=== PATIENT | female | born 1945 | race Caucasian/White ===

== ENCOUNTER 2021-02-12 09:56 | Emergency (ER) | payer OTHER, MEDICARE, SELFPAY ==
--- NOTE | ~2021-02-12 | XR_ITS ---
XR lumbar spine 2-3V DATE: 02/12/2021 10:45 INDICATION: Fall. Lower back pain. TECHNIQUE: AP, lateral, coned lateral lumbosacral views COMPARISON: None FINDINGS: There is moderate levoscoliosis of the lower thoracic and lumbar spine. There is degenerati ve spurring of the thoracic and lumbar spine. There is degenerative disc disease throughout the lumba r spine, particularly prominent at L3-4, L4-5 and L5-S1. No fracture or bone destruction is evident. The lumbar pedicles are intact. The sacroiliac joints appear normal. IMPRESSION: Thoracolumbar levoscoliosis Multilevel degenerative disc disease of the lumbar spine Reviewed, dictated and finalized at location A. UITING SPECIALIST
[2021-02-12 10:22] VITALS: BP 106/76; PULSE 99; RESP 18; TEMP 36.5; O2SAT 99
--- NOTE | 2021-02-12 10:43 | ED.BACK ---
HPI - Back Pain/Injury General Chief Complaint: Back Pain/Injury Stated Complaint: Back Pain Time Seen by Provider: 02/12/21 10:50 Source: patient, RN notes reviewed and old records reviewed Mode of arrival: ambulatory Limitations: no limitations History of Present Illness HPI Narrative: 75-year-old female who presents to [facility] with complaints of falling at [facility] yesterday when she slipped on some substance that was on the floor and she fell onto her lower back. Patient states she has pain to her tailbone area to the left buttocks with pain radiating down left leg posteriorly to mid thigh. Patient states that she has some burning sensation in the bottom of her left foot. Patient denies any previous back injury or problems with her back.Patient has no paraspinal tenderness on examination but pain identified in lower lumbar area and to left buttocks. MD elicited complaint: back pain, back injury and fall Pertinent past history: recent trauma Related Data Home Medications Medication Instructions Recorded Confirmed albuterol sulfate 90 mcg INHALATION DIRECTED 02/12/21 02/12/21 amlodipine 5 mg PO DIRECTED 02/12/21 02/12/21 budesonide-formoterol 2 inh INHALATION DIRECTED 02/12/21 02/12/21 fluticasone propionate 2 spray INTRANASAL DIRECTED 02/12/21 02/12/21 losartan-hydrochlorothiazide 1 tablet PO DIRECTED 02/12/21 02/12/21 olanzapine 7.5 mg PO DIRECTED 02/12/21 02/12/21 phentermine 15 mg PO DIRECTED 02/12/21 02/12/21 trazodone 100 mg PO DIRECTED 02/12/21 02/12/21 Allergies Allergy/AdvReac Type Severity Reaction Status Date / Time aspirin Allergy Rash Verified 02/12/21 10:36 codeine Allergy Rash Verified 02/12/21 10:36 erythromycin base Allergy Itching Verified 02/12/21 10:36 propoxyphene [From Darvon] Allergy Rash Verified 02/12/21 10:36 Review of Systems Review of Systems: CONSTITUTIONAL: Denies fever, chills, or sweats. EYES: Denies visual changes, redness, or discharge. ENT: Denies rhinorrhea, congestion, sore throat, or otalgia. CARDIOVASCULAR: Denies chest pain, palpitations, or edema. RESPIRATORY: Denies cough or dyspnea. GASTROINTESTINAL: Denies abdominal pain, nausea, vomiting, or diarrhea. GENITOURINARY: Denies dysuria or hematuria. SKIN: Denies rash or itching. MUSCULOSKELETAL: Positive for lower lumbar back pain, pain radiates to mid thigh posteriorly,no joint pain, or myalgia. NEUROLOGIC: Denies headache, numbness, or weakness. PSYCHIATRIC: Positive for history of anxiety or depression. All systems reviewed & are unremarkable except as noted in HPI and below PMFSH Past Medical History Medical History (Updated 02/12/21 @ 23:42 by Mary Patel NP) Anxiety and depression COPD (chronic obstructive pulmonary disease) GERD (gastroesophageal reflux disease) Hypertension Surgical History Surgical History (Updated 02/12/21 @ 23:38 by Mary Patel NP) History of appendectomy Social History Social History (Updated 02/12/21 @ 23:39 by Mary Patel NP) Smoking status: Former smoker Alcohol intake: current Alcohol use details: rare social Substance use: never Living arrangements: with family Gender identity (if verbalized by the patient): Female Comments At time of signature, agree with nursing past medical, surgical, social and family history. There is no relevant family history pertinent to the presenting complaint Exam Narrative: GENERAL: Well-appearing, well-nourished, and in no acute distress. HEAD: Normocephalic, atraumatic. EYES: PERRLA and EOMI. ENT: Nares clear, no rhinorrhea or epistaxis. Mucous membranes moist.TM's normal with good light reflex, throat pink with no lesions or exudates no tonsil enlargement. NECK: Supple.no lymphadenopathy CHEST: Clear to auscultation. No respiratory distress.SAO2 99% on room air HEART: Regular rate and rhythm. No murmur heard. Normal peripheral pulses. ABDOMEN: Soft, nontender, nondistended, normal
== END 2021-02-12 11:15 | disposition home or self-care (01) ==
PROVIDERS: Emergency Provider Registered Nurse
DX: S39.012A Strain of muscle, fascia and tendon of lower back, initial encounter (principal); W01.0XXA Fall on same level from slipping, tripping and stumbling without subsequent striking against object, initial encounter; Z87.891 Personal history of nicotine dependence; J44.9 Chronic obstructive pulmonary disease, unspecified; K21.9 Gastro-esophageal reflux disease without esophagitis; I10 Essential (primary) hypertension; F32.A Depression, unspecified
CPT/HCPCS: 72100; 99203; G0463

== ENCOUNTER 2021-03-01 10:49 | Observation (INO) | payer MEDICARE, SELFPAY ==
[2021-03-01] VITALS (21 sets, daily range): BP systolic 100–137; BP diastolic 62–79; PULSE 80–217; RESP 16–27; TEMP 36.1–37.2; O2SAT 91–100; BMI 39.0
--- NOTE | ~2021-03-01 | XR_ITS ---
EXAMINATION: XR chest 1V portable EXAM DATE: 03/01/2021 11:27 INDICATION: palpations . TECHNIQUE: Portable AP frontal chest x-ray was obtained. There is no prior study for comparison. FINDINGS: Cardiomegaly and pulmonary vascular congestion. No confluent consolidation, pneumothorax or pleural effusion suspected. Mild thoracolumbar scoliosis. IMPRESSION: 1. Cardiomegaly, pulmonary vascular congestion. 2. No confluent consolidation. Reviewed, dictated and finalized at location B. ALIC ACID PURIFIER
--- NOTE | 2021-03-01 10:55 | PC.NURSE ---
Patient presents to ED for intermittent feeling of dyspnea and palpations for past several days. patient taken to room 3. patient placed on monitor, EKG performed. 18g IV initiated in left ac x1 attempt, labs drawn.
--- NOTE | 2021-03-01 10:58 | ECG_ITS ---
Measurements Intervals [place] Rate: 216 P: [place]: 0 QRS: 36 QRSD: 85 T: 239 QT: 189 QTc: 359 Interpretive Statements SUPRAVENTRICULAR TACHYCARDIA MISSING LEAD V3 CONSIDER INFERIOR INFARCT, AGE INDETERMINATE ST-T WAVE ABNORMALITY IN ANTEROLAT/INF LEADS- CONSIDER ISCHEMIA ABNORMAL ECG Electronically Signed On 03-01-2021 13:03:07 TUMBLER OPERATOR by Ap Barragan D.O.
--- NOTE | 2021-03-01 11:06 | PC.NURSE ---
1102 6 mg adenosine administered IVP ERP Yunior at bedside. 1103 12 mg adenosine administered IVP ERP Yunior at bedside. 1106 12 mg adenosine administered IVP ERP Yunior at bedside. 1108 5 mg IVP labetolol administered vorb erp yunior. 111 5 mg labetelol administered IVP VORB ERP Yunior.
--- NOTE | 2021-03-01 11:13 | ED.GENADULT ---
HPI - General Adult General Chief complaint: Shortness of Breath/Dyspnea Stated complaint: sob Time Seen by Provider: 03/01/21 11:12 History of Present Illness HPI narrative: 75-year-old female with a reported history of SVT presents to the emergency department with a heart rate of greater than 200. Patient states that often when she gets SVT that it is short lasting and resolves. Patient states since last night she has felt that she has had a rapid heart rate. Patient reports that she has a possible remote cardiac history. Patient states she is to follow-up with a physician in [place]. Patient states that she did have a stress test then and was told that she may have some blocked arteries. Patient does not have any stents in place. Patient does not have current cardiology follow-up. Related Data Home Medications Medication Instructions Recorded Confirmed albuterol sulfate 90 mcg INHALATION DIRECTED 02/12/21 02/12/21 amlodipine 5 mg PO DIRECTED 02/12/21 02/12/21 budesonide-formoterol 2 inh INHALATION DIRECTED 02/12/21 02/12/21 fluticasone propionate 2 spray INTRANASAL DIRECTED 02/12/21 02/12/21 losartan-hydrochlorothiazide 1 tablet PO DIRECTED 02/12/21 02/12/21 olanzapine 7.5 mg PO DIRECTED 02/12/21 02/12/21 phentermine 15 mg PO DIRECTED 02/12/21 02/12/21 trazodone 100 mg PO DIRECTED 02/12/21 02/12/21 Allergies Allergy/AdvReac Type Severity Reaction Status Date / Time aspirin Allergy Rash Verified 03/01/21 13:07 codeine Allergy Rash Verified 03/01/21 13:07 erythromycin base Allergy Itching Verified 03/01/21 13:07 propoxyphene [From Darvon] Allergy Rash Verified 03/01/21 13:07 Review of Systems Review of Systems: CONSTITUTIONAL: Denies fever, chills, or sweats. EYES: Denies visual changes, redness, or discharge. ENT: Denies rhinorrhea, congestion, sore throat, or otalgia. CARDIOVASCULAR: Rapid heart rate RESPIRATORY: Shortness of breath associated with rapid heart rate GASTROINTESTINAL: Denies abdominal pain, nausea, vomiting, or diarrhea. GENITOURINARY: Denies dysuria or hematuria. SKIN: Denies rash or itching. MUSCULOSKELETAL: Denies back pain, joint pain, or myalgia. NEUROLOGIC: Denies headache, numbness, or weakness. All systems reviewed & are unremarkable except as noted in HPI and below PMFSH Past Medical History Medical History (Updated 03/01/21 @ 14:21 by Sagar Boo MD) Anxiety and depression COPD (chronic obstructive pulmonary disease) GERD (gastroesophageal reflux disease) Hypertension Surgical History Surgical History (Updated 02/12/21 @ 23:38 by Mary Patel NP) History of appendectomy Social History Social History (Updated 02/12/21 @ 23:39 by Mary Patel NP) Smoking status: Former smoker Alcohol intake: current Alcohol use details: rare social Substance use: never Gender identity (if verbalized by the patient): Female Exam Narrative: APPEARANCE: Well appearing, no pain, no distress, well-nourished. HEAD: normocephalic, atraumatic. EYES: PERRLA/EOMI, conjunctivae clear. NOSE: Normal no drainage EARS:TMS clear with good light reflex. THROAT: Pharynx clear, no exudate. NECK: Supple. No adenopathy, no masses. RESPIRATORY: Airway patent, respirations nonlabored. Clear to auscultation bilaterally, no rales, rhonchi, wheezing. CARDIOVASCULAR: Was initially in SVT but did convert back to normal sinus rhythm. ABDOMINAL: Soft, nontender, nondistended, normal bowel sounds MUSCULOSKELETAL: Moves all extremities. Strength/ROM intact, No edema, No calf tenderness. Course Course Emergency Course: Patient was treated with 6 mg of Adenocard, followed by 2 doses of 12 mg of IV Adenocard. Patient initially did temporarily break back into a normal sinus rhythm but then did return back to SVT. Patient was treated with 2 doses of labetalol 5 mg and this helped the patient's tachycardia down to a rate of 100. After the labetalol patient is now
--- NOTE | 2021-03-01 11:14 | ECG_ITS ---
Measurements Intervals [place] Rate: 94 P: 41 [place]: 179 QRS: 19 QRSD: 90 T: 42 QT: 340 QTc: 427 Interpretive Statements SINUS RHYTHM CONSIDER INFERIOR INFARCT, AGE INDETERMINATE BASELINE ARTIFACT- I, II, III, AVR, V1, V3-V5 ABNORMAL ECG Electronically Signed On 03-08-2021 6:12:23 COMPOUNDER by Ap Barragan D.O.
[2021-03-01 11:29] LABS: Basophils Absolute Auto 0.1 K/mm3 (0.0-0.1); Basophils Percent Auto 0.7 % (0.2-1.2); Eosinophils Absolute Auto 0.1 K/mm3 (0-0.3); Eosinophils Percent Auto 0.6 % (0-4.4); Hematocrit 42.8 % (37.0-47.0); Hemoglobin 14.4 g/dL (12.0-15.0); Immature Granulocyte Absolute 0.03 K/mm3 (0.00-0.031); Immature Granulocyte Percent A 0.2 % (0-0.5); Lymphocytes Absolute Auto 3.25 K/mm3 (0.9-3.2); Lymphocytes Percent Auto 24.9 % (18.3-44.2); Mean Corpuscular HGB Conc 33.6 g/dl (32-36); Mean Corpuscular Hemoglobin 30.5 pg (26-34); Mean Corpuscular Volume 90.7 fl (80-100); Mean Platelet Volume 11.5 fl (7.4-10.4); Monocytes Absolute Auto 1.1 K/mm3 (0.1-0.6); Monocytes Percent Auto 8.5 % (2.6-8.5); Neutrophils Absolute Auto 8.5 K/mm3 (1.3-6.7); Neutrophils Percent Auto 65.1 % (45.5-73.1); Platelet Count Result 262 k/mm3 (150-375); Red Blood Count 4.72 M/mm3 (4.2-5.4); Red Cell Distribution Width 12.8 % (11.5-14.5); White Blood Count 13.1 K/mm3 (4.5-10.0)
[2021-03-01 11:42] LABS: Alanine Aminotransferase 43 U/L (4-35); Albumin Level 4.4 g/dL (3.5-5.1); Alkaline Phosphatase 93 U/L (38-126); Anion Gap 12 mmol/L (8-16); Aspartate Amino Transferase 33 U/L (14-36); Bilirubin,Total 0.5 mg/dL (0.2-1.3); Blood Urea Nitrogen 15 mg/dL (7-17); Calcium 9.2 mg/dL (8.4-10.2); Carbon Dioxide 27 mmol/L (22-30); Chloride 97 mmol/L (98-107); Estimated CRCL calculation 40 ml/min; Estimated Glomerular Filt Rate 48; Glucose 102 mg/dL (65-110); Potassium 3.2 mmol/L (3.4-5.0); Sodium 136 mmol/L (137-145)
[2021-03-01 11:52] LABS: Troponin I < 0.012 ng/mL (0.000-0.034)
[2021-03-01] MEDS: POTASSIUM CHLORIDE 20 MEQ PACKET (FOR LIQUID) 40 MEQ PO (11:59)
[2021-03-01] MEDS: METOPROLOL SUCCINATE EXT REL 12.5 MG TABCR PO (13:38)
[2021-03-01 14:04] LABS: Troponin I 0.048 ng/mL (0.000-0.034)
--- NOTE | 2021-03-01 16:00 | PM.IMHP ---
H&P: HPI History of Present Illness Date/Time: 03/01/21 16:00 Chief Complaint: Shortness of breath and palpitations. Narrative: This is a pleasant 75-year-old female with history of hypertension, COPD, GERD, and depression who presented to the emergency department earlier today from home for evaluation of shortness of breath and palpitations. Earlier this morning she was wakened from sleep with feelings of a racing heart and shortness of breath and she came into the ER for evaluation after approximately 4 hours due to lack of resolution. On arrival she was found to be in SVT and she was treated with adenosine x3 and labetalol 10 mg x 1 with sikhism of sinus rhythm. Over the years she has had similar episodes which are self-limiting and typically only last a minute or so. These episodes occur maybe every few months however they have become more frequent over the past 2 months. She also has feelings of dizziness and occasionally heaviness in the chest region with these episodes. With further questioning it sounds as though these episodes occur frequently in the middle of the night and in fact it is not unusual for her to wake up in the middle of the night gasping for air. She has no history of sleep apnea and has never had a study to evaluate for this same however she was told that if she lost weight that she may not have such problems at nighttime and she was started on phentermine at the beginning of January 2021. She has no history of thyroid disease. She denies significant caffeine and alcohol intake. She has not had exertional chest pain or pleuritic pain. No nausea, vomiting, or sweats. No lower extremity edema. Review of Systems Review of Systems: Twelve systems were reviewed. No recent cold or flu symptoms. No sick contacts. Except as documented, all other systems were reviewed and are negative. [facility] Past Medical History Medical History (Updated 03/02/21 @ 00:05 by Felisha Cummings PA-C) Anxiety and depression Arthritis Chronic obstructive pulmonary disease Degenerative disc disease Gastroesophageal reflux disease History of GI bleed Hypertension Pulmonary embolism Surgical History Surgical History (Updated 03/02/21 @ 00:02 by Felisha Cummings PA-C) History of appendectomy History of colonoscopy with polypectomy Family History Family History Father Acute myocardial infarction Mother Diabetes mellitus Other Chronic obstructive pulmonary disease Social History Social History (Updated 03/02/21 @ 00:03 by Felisha Cummings PA-C) Social History: Surrogate decision maker: Rizwana Yeung or Ashlyn Orr, daughters. Code status: Full code. Smoking packs per day: 1.5 Smoking cigarettes per day: 30.0 Years smoked: 40 Smoking pack-years: 60.00 Smoking status: Former smoker Tobacco type: cigarettes Alcohol intake: current Alcohol use details: 1 drink every 3 months. Substance use: current Substance use type: marijuana Meds Home Medications and Allergies Home Medications Medication Instructions Recorded Confirmed Type albuterol sulfate 90 mcg INHALATION Q4-6H 02/12/21 03/01/21 History amlodipine 10 mg PO DIRECTED 02/12/21 03/01/21 History budesonide-formoterol 2 inh INHALATION BID 02/12/21 03/01/21 History fluticasone propionate 2 spray INTRANASAL BID 02/12/21 03/01/21 History losartan-hydrochlorothiazide 1 tablet PO DAILY 02/12/21 03/01/21 History olanzapine 7.5 mg PO HS 02/12/21 03/01/21 History phentermine 30 mg PO DAILY 02/12/21 03/01/21 History trazodone 100 mg PO HS 02/12/21 03/01/21 History Allergies Allergy/AdvReac Type Severity Reaction Status Date / Time aspirin Allergy Rash Verified 03/01/21 13:07 codeine Allergy Rash Verified 03/01/21 13:07 erythromycin base Allergy Itching Verified 03/01/21 13:07 propoxyphene [From Darvon] Allergy Rash Verified 03/01/21 13:07 Vital Signs Vital Signs - 24 hr
[2021-03-01 16:48] LABS: SARS-CoV-2 RNA PCR Negative
--- NOTE | 2021-03-01 18:36 | PC.NURSE ---
This patient, Cady Brooks, was admitted to IMU Room 214-01. Patient/family oriented to hospital policies and general routines including ID bracelet, bed and alarms, visiting hours, pain management, procedures, bathroom and other care routines, personal items, smoking policy, room service/diet, and visiting hours. Information on how to activate the Rapid Response Team has been discussed. Patient/Family are encouraged to report perceived risks to care and to ask questions if they do not understand what they are told or what they should do.
[2021-03-01 19:02] LABS: Troponin I 0.088 ng/mL (0.000-0.034)
[2021-03-02] VITALS (14 sets, daily range): BP systolic 97–120; BP diastolic 45–76; PULSE 73–102; RESP 16–20; TEMP 36.1–37.1; O2SAT 94–97
--- NOTE | 2021-03-02 00:09 | ECHO_ITS ---
Patient Info Name: Cady Brooks Age: 75 years : 1945 Gender: Female Ht: 61 in Wt: 200 lbs BSA: 2.02 m2 HR: 89 bpm BP: 120 / 60 mmHg Heart Rhythm: Sinus Rhythm Technical Quality: Good Exam Date: 03/02/2021 7:51 AM Exam Location: [facility] Patient Status: Outpatient Admit Date: 03/01/2021 Staff Ordering Physician: Felisha Cummings PA-C Echo Technologist: Isha Alamo RDCS Attending Provider: Jose Melgar MD Referring Physician: Zoila RAI; Exam Type: CA echo doppler color flow Study Info Indications I47.1 - Supraventricular tachycardia Complete two-dimensional, color flow and Doppler transthoracic echocardiogram is performed. Summary 1. Complete two-dimensional, color flow and Doppler transthoracic echocardiogram is performed. 2. Left ventricular chamber dimension is normal. 3. Left ventricular systolic function is normal, estimated at 65-70%. 4. There is no increased left ventricular wall thickness. 5. Left ventricular septal wall motion is normal. 6. The left ventricular diastolic function is grade I diastolic dysfunction. 7. Left atrial chamber dimension is moderately enlarged. 8. There is mild aortic valve regurgitation. 9. There is mild mitral valve regurgitation. 10. The mitral valve has calcified annulus. 11. There is mild to moderate tricuspid valve regurgitation. 12. There is mild pulmonic regurgitation. 13. There is small pericardial effusion. Left Ventricle Left ventricular chamber dimension is normal. Left ventricular systolic function is normal, estimated at 65-70%. There is no increased left ventricular wall thickness. Left ventricular septal wall motion is normal. The left ventricular diastolic function is grade I diastolic dysfunction. Right Ventricle Right ventricular chamber dimension is normal. Right ventricular systolic function is normal. Left Atria Left atrial chamber dimension is moderately enlarged. Right Atria Right atrial chamber dimension is normal. Atrial Septum Intact interatrial septum visualized by color flow imaging. Aortic Valve The aortic valve is trileaflet. There is mild aortic valve sclerosis. There is no aortic valve stenosis. There is mild aortic valve regurgitation. Pulmonic Valve The pulmonic valve is normal. There is no pulmonic valve stenosis. There is mild pulmonic regurgitation. Mitral Valve The mitral valve has calcified annulus. There is no mitral valve stenosis. There is mild mitral valve regurgitation. Tricuspid Valve The tricuspid valve leaflets are normal. There is no significant tricuspid valve stenosis. There is mild to moderate tricuspid valve regurgitation. No pulmonary hypertension, estimated pulmonary arterial systolic pressure is 28 mmHg. Pericardium/Pleural The pericardium appears normal. There is small pericardial effusion. Inferior Vena Cava Normal inferior vena cava with >50% collapse upon inspiration consistent with normal right atrial pressure, 5 mmHg. Aorta The aortic root size at the sinus of Valsalva is normal. The prox ascending aorta size is normal. Left Ventricular Outflow Tract Name Value Normal LVOT 2D LVOT Diameter 1.9 cm
[2021-03-02] MEDS: OLANZapine 5 MG TABLET PO ×2 (00:48→21:11)
[2021-03-02] MEDS: traZODone HCL 50 MG TABLET 100 MG PO ×2 (00:48→21:12)
[2021-03-02] MEDS: OLANZapine 2.5 MG TABLET PO ×2 (00:48→21:11)
[2021-03-02 05:04] LABS: Hematocrit 39.9 % (37.0-47.0); Hemoglobin 13.1 g/dL (12.0-15.0); Mean Corpuscular HGB Conc 32.8 g/dl (32-36); Mean Corpuscular Volume 91.5 fl (80-100); Mean Platelet Volume 11.1 fl (7.4-10.4); Platelet Count Result 232 k/mm3 (150-375); Red Blood Count 4.36 M/mm3 (4.2-5.4); White Blood Count 6.9 K/mm3 (4.5-10.0)
[2021-03-02 05:16] LABS: Anion Gap 6 mmol/L (8-16); Blood Urea Nitrogen 14 mg/dL (7-17); Calcium 8.9 mg/dL (8.4-10.2); Carbon Dioxide 29 mmol/L (22-30); Chloride 102 mmol/L (98-107); Cholesterol 154 mg/dL (0-200); Estimated CRCL calculation 55 ml/min; Estimated Glomerular Filt Rate > 60; Glucose 86 mg/dL (65-110); HDL Direct 46 mg/dL; Magnesium 1.8 mg/dL (1.6-2.3); Potassium 3.6 mmol/L (3.4-5.0); Sodium 137 mmol/L (137-145); Triglycerides 128 mg/dL (<150)
[2021-03-02 05:27] LABS: LDL Cholesterol Direct 81 mg/dL
[2021-03-02] MEDS: FLUTICASONE/SALMETEROL 45-21 MCG INHALER 1 PUFF 2 PUFF INHALATION ×2 (09:17→21:51)
--- NOTE | 2021-03-02 09:56 | PM.IMPN ---
Progress Note: A&P Assessment and Plan (1) Supraventricular tachycardia: Code(s): I47.1 - Supraventricular tachycardia Status: Acute Assessment and Plan: chronic with recent worsening of symptoms by history possibly related to recent initiation of phentermine for weight loss possible underlying sleep apnea stop amlodipine and utilize diltiazem ApneaLink likely home 03/03 if stable overnight (2) Elevated troponin: Code(s): R77.8 - Other specified abnormalities of plasma proteins Status: Acute Assessment and Plan: Suspect due to PSVT alone without acute coronary syndrome echocardiogram consider outpatient stress test (3) Hypertension: Qualifiers: Hypertension type: unspecified Qualified Code(s): I10 - Essential (primary) hypertension Code(s): I10 - Essential (primary) hypertension Status: Acute Assessment and Plan: Blood pressures were reviewed and they are stable. (4) Cardiomegaly: Code(s): I51.7 - Cardiomegaly Status: Acute Assessment and Plan: Echocardiogram pending (5) Suspected sleep apnea: Code(s): R29.818 - Other symptoms and signs involving the nervous system Status: Acute Assessment and Plan: ApneaLink (6) Chronic obstructive pulmonary disease: Qualifiers: COPD type: unspecified COPD Qualified Code(s): J44.9 - Chronic obstructive pulmonary disease, unspecified Code(s): J44.9 - Chronic obstructive pulmonary disease, unspecified Status: Acute Assessment and Plan: No acute issues. Subjective Date/time seen: 03/02/21 09:56 Interval history: admitted 03/01 with PSVT dyspnea fatigue. 03/02 visit. No further episodes. No shortness of breath chest pain palpitations syncope or presyncope. Denied GI or symptoms or abnormal bleeding. Tolerated diet. Review of Systems Review of Systems: All systems reviewed & are unremarkable except as noted in HPI and below Exam Narrative: HEENT: EOMI, PERRL, sclerae nonicteric, pharyngeal mucosa pink and intact NECK: No JVD, adenopathy, or thyromegaly CHEST: Clear to auscultation. Normal effort. HEART: NL S1/S2, regular, no murmur ABDOMEN: BS+, soft, nontender, no mass, no bruits EXTREMITIES: No cyanosis, edema, or clubbing NEUROLOGIC: CN intact and symmetric to inspection. MUSCULOSKELETAL: Tone and strength symmetric. PSYCH: Alert. Oriented to person, place, and time. Objective Data Vital Signs Vital Signs: Vital Signs - 24 hr 03/01/21 10:52 03/01/21 11:51 03/01/21 11:52 Temperature 98.9 F Pulse Rate 217 H 105 H 96 Respiratory Rate 20 20 23 H Blood Pressure 115/72 Pulse Oximetry 100 91 92 03/01/21 12:07 03/01/21 12:23 03/01/21 12:30 Temperature Pulse Rate 97 97 93 Respiratory Rate 24 H 20 22 H Blood Pressure 122/78 Pulse Oximetry 96 98 03/01/21 12:41 03/01/21 12:52 03/01/21 13:05 Temperature Pulse Rate 91 96 96 Respiratory Rate 27 H 22 H 24 H Blood Pressure 103/68 Pulse Oximetry 99 100 03/01/21 13:15 03/01/21 13:34 03/01/21 13:38 Temperature Pulse Rate 94 97 95 Respiratory Rate 19 20 Blood Pressure 112/76 Pulse Oximetry 96 100 03/01/21 13:41 03/01/21 13:45 03/01/21 14:15 Temperature Pulse Rate 105 H 108 H 90 Respiratory Rate 24 H 20 22 H Blood Pressure 110/69 100/62 Pulse Oximetry 99 96 03/01/21 18:00 03/01/21 18:35 03/01/21 19:53 Temperature 97.9 F 97.5 F L Pulse Rate 85 89 81 Respiratory Rate 18 20 Blood Pressure 137/79 130/63 Pulse Oximetry 99 97 03/01/21 20:00 03/01/21 22:00 03/01/21 23:46 Temperature 97 F L Pulse Rate 87 80 85 Respiratory Rate 16 Blood Pressure 124/68 Pulse Oximetry 96 03/02/21 00:00 03/02/21 02:00 03/02/21 04:00 Temperature 97 F L Pulse Rate 83 91 102 H Respiratory Rate 16 Blood Pressure 120/60 Pulse Oximetry 97 03/02/21 06:00 03/02/21 08:00 03/02/21
[2021-03-02] MEDS: LOSARTAN POTASSIUM 100 MG TABLET PO (10:53)
[2021-03-02] MEDS: ENOXAPARIN 40 MG/0.4 ML SYRINGE SUB-Q (10:54)
[2021-03-02] MEDS: hydroCHLOROthiazide 25 MG TABLET PO (10:54)
[2021-03-02] MEDS: dilTIAZem HCL CD 180 MG CAP.ER.24H PO (10:59)
--- NOTE | 2021-03-02 11:47 | PM.CNCAR ---
Assessment and Plan Assessment and plan (1) Supraventricular tachycardia: Code(s): I47.1 - Supraventricular tachycardia Status: Acute Assessment and Plan: Possibly exacerbated by her weight loss supplements recently. Regardless she does have a narrow complex tachycardia consistent with SVT. Possibly AVNRT or AVRT. Will repeat an EKG now to ensure there is no delta wave now that she is in sinus rhythm. She also has some electrolyte imbalance and electrolytes will be replaced. Agree with transition to diltiazem. 2D echocardiogram Doppler is ordered and will be reviewed. Outpatient stress test to be performed. She is also advised to limit or eliminate caffeine and chocolate, stop weight loss supplements, avoid Sudafed and like compounds, limit stress as much as possible. Obviously if she has recurrent episodes that are significant, further adjustments to her medications or referral to electrophysiology for consideration of ablation could be considered as an outpatient. (2) Chronic obstructive pulmonary disease: Code(s): J44.9 - Chronic obstructive pulmonary disease, unspecified Status: Acute Assessment and Plan: Related previous tobacco use history. Stable (3) Elevated troponin: Code(s): R77.8 - Other specified abnormalities of plasma proteins Status: Acute Assessment and Plan: This is secondary to her extreme tachycardia and unlikely related to acute plaque rupture. (4) Hypertension: Code(s): I10 - Essential (primary) hypertension Status: Acute Assessment and Plan: Agree with Dr. Salazar to transition her calcium channel shaun to diltiazem from amlodipine. (5) Suspected sleep apnea: Code(s): R29.818 - Other symptoms and signs involving the nervous system Status: Acute Assessment and Plan: Agree that sleep apnea should be consideration. Nocturnal oxygen study tonight (6) Electrolyte imbalance: Code(s): E87.8 - Other disorders of electrolyte and fluid balance, not elsewhere classified Status: Acute Assessment and Plan: Her K is low and I will give her 40 mg p.o. potassium x1. Her magnesium is also slightly low will replace with 2 g IV x1 History of Present Illness History of Present Illness Consult date/time: 03/02/21 11:47 Requesting physician: Sagar Boo MD Consult reason: Other (SVT, elevated troponin) Reason For Visit: SVT/bumped trop Narrative: Date of service 03/02/2021 Reason consultation: SVT, elevated troponin Requesting provider: Dr. Boo History patient is a 75-year-old female who presented to the hospital because of shortness of breath, tachycardia. Case was discussed initially with Valentine Mckeon and Dr. Mcintyre yesterday. Because of a bump in troponins though, patient was admitted for further workup, treatment, observation and evaluation. Patient has been noticing episodes of tachycardia, shortness of breath as well as some chest discomfort which sometimes radiates to her arm. These episodes started about 5 months ago and have been worsening. Air becoming more severe and more intense. Yesterday however she had a recurrence of her symptoms which would not stop for consistent Prieb of time. She would have tachycardia, shortness of breath, lightheadedness and chest discomfort that would temporarily resolved but would return shortly thereafter. Because of the severity and frequency her episodes yesterday she came to the hospital for further workup evaluation were she was found to be in SVT. She was given adenosine which did briefly convert her to sinus rhythm but she reverted back to SVT. She then was given labetalol with more persistent improvement. She currently feels okay although she is quite nervous. At this point, She denies any chest pain at present, shortness of breath, syncope, presyncope, paroxysmal nocturnal dyspnea, orthopnea, edema palpitations B size that mentioned above. It shou
--- NOTE | 2021-03-02 11:58 | ECG_ITS ---
Measurements Intervals [place] Rate: 90 P: 50 [place]: 162 QRS: 15 QRSD: 89 T: 38 QT: 356 QTc: 437 Interpretive Statements SINUS RHYTHM CONSIDER INFERIOR INFARCT, AGE INDETERMINATE BASELINE ARTIFACT- I ABNORMAL ECG Electronically Signed On 03-02-2021 15:04:14 [employer] by Ap Barragan D.O.
[2021-03-02] MEDS: traMADol HCL (*CRX) 50 MG TABLET PO (11:59)
[2021-03-02 12:44] LABS: Glucose Point of Care 124 mg/dl (65-105)
[2021-03-02] MEDS: MAGNESIUM SULF 2 GM/WATER 50ML 2 GM/50 ML BAG IVPB (13:18)
[2021-03-02] MEDS: POTASSIUM CHLORIDE 20 MEQ TABLET 40 MEQ PO (13:18)
[2021-03-02 17:25] LABS: Glucose Point of Care 118 mg/dl (65-105)
[2021-03-03] VITALS: PULSE 92
[2021-03-03 04:00] VITALS: PULSE 88
[2021-03-03 08:00] VITALS: BP 132/64; PULSE 100; PULSE 96; RESP 16; TEMP 36.6; O2SAT 95
[2021-03-03] MEDS: hydroCHLOROthiazide 25 MG TABLET PO (09:04)
[2021-03-03] MEDS: ENOXAPARIN 40 MG/0.4 ML SYRINGE SUB-Q (09:04)
[2021-03-03] MEDS: FLUTICASONE PROPIONATE 0.05% NA SPR 16 GM BTL (*BKC) 2 SPRAY NASAL (09:04)
[2021-03-03] MEDS: LOSARTAN POTASSIUM 100 MG TABLET PO (09:04)
[2021-03-03] MEDS: dilTIAZem HCL CD 180 MG CAP.ER.24H PO (09:04)
--- NOTE | 2021-03-03 09:18 | PM.DS ---
DS: Admitting Diagnosis Discharge Date Patient was seen and evaluated on March 03, 2021 Admitting Diagnosis PSVT symptomatic DS: Discharge Diagnosis Discharge Diagnosis (1) Supraventricular tachycardia: Code(s): I47.1 - Supraventricular tachycardia Status: Acute Assessment and Plan: chronic with recent worsening of symptoms by history possibly related to recent initiation of phentermine for weight loss possible underlying sleep apnea stop amlodipine and utilize diltiazem ApneaLink consistent with obstructive sleep apnea 03/03 no recurrent episodes overnight and telemetry sinus rhythm with PACs. (2) Elevated troponin: Code(s): R77.8 - Other specified abnormalities of plasma proteins Status: Acute Assessment and Plan: Suspect due to PSVT alone without acute coronary syndrome echocardiogram To schedule outpatient stress test with Cardiology (3) Hypertension: Qualifiers: Hypertension type: unspecified Qualified Code(s): I10 - Essential (primary) hypertension Code(s): I10 - Essential (primary) hypertension Status: Acute Assessment and Plan: Blood pressures were reviewed and they are stable. (4) Cardiomegaly: Code(s): I51.7 - Cardiomegaly Status: Acute Assessment and Plan: Echocardiogram with normal systolic function and mild LVH and diastolic dysfunction and minimal valvular dysfunction (5) Suspected sleep apnea: Code(s): R29.818 - Other symptoms and signs involving the nervous system Status: Acute Assessment and Plan: ApneaLink abnormal (6) Chronic obstructive pulmonary disease: Qualifiers: COPD type: unspecified COPD Qualified Code(s): J44.9 - Chronic obstructive pulmonary disease, unspecified Code(s): J44.9 - Chronic obstructive pulmonary disease, unspecified Status: Acute Assessment and Plan: No acute issues. DS: Summary Hospital Course Reason for hospitalization: Palpitations and dyspnea Hospital Course: Admitted with acute shortness of breath and palpitations found to have PSVT with heart rate over 200 responded to adenosine IV. EKG during that time did showed minimal ST changes. EKG after conversion to normal sinus rhythm was unremarkable. Chest x-ray showed cardiomegaly and pulmonary vascular congestion. Troponins increase slightly. TSH was within normal limits. Other labs were unremarkable. She had no further episodes after the adenosine. Her amlodipine was discontinued and diltiazem extended release 180 mg daily was substituted. She tolerated this well. She was seen by Cardiology and was to follow up with a Holter monitor and a stress test as an outpatient. Status at Discharge Overall status at discharge: patient is back to baseline Time Spent with Patient Time attestation: Total time spent providing and/or coordinating discharge services: Time spent: Greater than 30 minutes Exam Narrative: HEENT: EOMI, PERRL, sclerae nonicteric, pharyngeal mucosa pink and intact NECK: No JVD, adenopathy, or thyromegaly CHEST: Clear to auscultation. Normal effort. HEART: NL S1/S2, regular, no murmur ABDOMEN: BS+, soft, nontender, no mass, no bruits EXTREMITIES: No cyanosis, edema, or clubbing NEUROLOGIC: CN intact and symmetric to inspection. MUSCULOSKELETAL: Tone and strength symmetric. PSYCH: Alert. Oriented to person, place, and time. DS: Data Data Completed and Pending Labs on day of discharge: Labs from last 24 hours 03/02/21 03/02/21 16:15 11:44 POC Capillary Glucose 118 H 124 H Discharge Plan Discharge Consulting providers: Jh Rea Discharging Clinician: Phillip Salazar Patient Disposition: Home, Self-Care Activity: no straining Diet: heart healthy and diabetic Discharge Instructions: Discuss sleep study with PCP, Dr. Quevedo. Schedule stress test with Dr. Rea. Patient Instructions: Anti
--- NOTE | 2021-03-03 09:59 | PM.PNCARD ---
Progress Note: A&P Assessment and Plan (1) Supraventricular tachycardia: Code(s): I47.1 - Supraventricular tachycardia Status: Acute Assessment and Plan: Possibly exacerbated by her weight loss supplements recently. Regardless she does have a narrow complex tachycardia consistent with SVT. Possibly AVNRT or AVRT. Continue diltiazem. Outpatient stress test to be performed. She is also advised to limit or eliminate caffeine and chocolate, stop weight loss supplements, avoid Sudafed and like compounds, limit stress as much as possible. Obviously if she has recurrent episodes that are significant, further adjustments to her medications or referral to electrophysiology for consideration of ablation could be considered as an outpatient. (2) Chronic obstructive pulmonary disease: Qualifiers: COPD type: unspecified COPD Qualified Code(s): J44.9 - Chronic obstructive pulmonary disease, unspecified Code(s): J44.9 - Chronic obstructive pulmonary disease, unspecified Status: Acute Assessment and Plan: Related previous tobacco use history. Stable (3) Elevated troponin: Code(s): R77.8 - Other specified abnormalities of plasma proteins Status: Acute Assessment and Plan: This is secondary to her extreme tachycardia and unlikely related to acute plaque rupture. (4) Hypertension: Qualifiers: Hypertension type: unspecified Qualified Code(s): I10 - Essential (primary) hypertension Code(s): I10 - Essential (primary) hypertension Status: Acute Assessment and Plan: Agree with Dr. Salazar to transition her calcium channel shaun to diltiazem from amlodipine. (5) Suspected sleep apnea: Code(s): R29.818 - Other symptoms and signs involving the nervous system Status: Acute Assessment and Plan: Outpatient formal sleep study (6) Electrolyte imbalance: Code(s): E87.8 - Other disorders of electrolyte and fluid balance, not elsewhere classified Status: Acute Assessment and Plan: Replaced Follow-up in our office in 2-4 weeks Subjective Date/time seen: 03/03/21 09:59 Interval history: 75-year-old admitted because of SVT and elevated troponins Date of service 03/03/2021: Feels good today. No significant arrhythmia overnight. Echocardiogram was generally unremarkable. No chest pain, shortness of breath. Apnea link was abnormal Review of Systems Review of Systems: All systems reviewed & are unremarkable except as noted in HPI and below Constitutional: Constitutional: Denies fatigue, Denies headache(s) and Denies weakness Eyes: Eyes: Denies blurry vision ENT: Reports Normal hearing present, Denies headache(s) and Denies neck pain Cardiovascular: Cardiovascular: Reports chest pain, Reports leg edema, Reports palpitations and Reports dyspnea Respiratory: Respiratory: Reports dyspnea Gastrointestinal: Gastrointestinal: Denies abdominal pain Genitourinary: Genitourinary: Denies flank pain Musculoskeletal: Musculoskeletal: Denies neck pain Integumentary/Breasts: Skin/Breast: Denies dry skin Neurologic: Reports Normal hearing present, Denies confusion, Denies headache(s) and Denies weakness Psychiatric: Psychiatric: Denies anxiety and Denies confusion Endocrine: Endocrine: Denies fatigue and Reports palpitations Hematologic/Lymphatic: Hematologic/Lymphatic: Denies easy bleeding Allergic/Immunologic: Allergic/Immunologic: Denies GI upset with certain foods Exam Narrative: Awake alert. Appears stated age Const: General: comfortable and no acute distress; No confusion Orientation/consciousness: No confusion HENMT: General nose exam: Normal nares present Eyes: Sclera: sclerae normal Neck: Neck: supple and no JVD Chest: Other: No reproducible chest wall pain to palpation Resp: Auscultation: clear to auscultation bilaterally Cardio: Rate: regular rate Rhythm: regular rhythm Heart
[2021-03-03] MEDS: FLUTICASONE/SALMETEROL 45-21 MCG INHALER 1 PUFF 2 PUFF INHALATION (10:05)
== END 2021-03-03 10:55 | disposition home or self-care (01) ==
LOC: ANHED 14:31 → ANHIMU 03-03 09:38 → ANH3MEDSUR 03-05 17:33 → ANHIMU 03-05 17:33
PROVIDERS: Physician Assistant; Admitting Provider Family Medicine; Emergency Provider Emergency Medicine; Visit Provider Internal Medicine
DX: I47.1 Supraventricular tachycardia (principal); R06.02 Shortness of breath; R77.8 Other specified abnormalities of plasma proteins; I11.9 Hypertensive heart disease without heart failure; E87.6 Hypokalemia; E83.42 Hypomagnesemia; I35.1 Nonrheumatic aortic (valve) insufficiency; I34.0 Nonrheumatic mitral (valve) insufficiency; I36.1 Nonrheumatic tricuspid (valve) insufficiency; I31.3 Pericardial effusion (noninflammatory); J44.9 Chronic obstructive pulmonary disease, unspecified; K21.9 Gastro-esophageal reflux disease without esophagitis; F41.8 Other specified anxiety disorders; R29.818 Other symptoms and signs involving the nervous system; Z87.891 Personal history of nicotine dependence; Z79.51 Long term (current) use of inhaled steroids; Z86.711 Personal history of pulmonary embolism; Z20.822 Contact with and (suspected) exposure to COVID-19
CPT/HCPCS: 36415; 71045; 80048; 80053; 80061; 82948; 83735; 84443; 84484; 85025; 85027; 93005; 93306; 94640; 94762; 96365; 96366; 96372; 99285; A9270; C9803; G0378; J0153; J1650; J3475; J7030; U0003; U0005

== ENCOUNTER 2022-05-07 14:09 | Outpatient (CLI) | payer MEDICARE, SELFPAY ==
[2022-05-07 15:36] LABS: Anion Gap 3 mmol/L (8-16); Blood Urea Nitrogen 15 mg/dL (7-17); Calcium 8.8 mg/dL (8.4-10.2); Carbon Dioxide 36 mmol/L (22-30); Chloride 96 mmol/L (98-107); Estimated Glomerular Filt Rate > 60; Glucose 92 mg/dL (65-110); Potassium 3.3 mmol/L (3.4-5.0); Sodium 135 mmol/L (137-145)
[2022-05-07 16:05] LABS: Thyroid Stimulating Hormone 0.908 uIU/mL (0.465-4.680)
[2022-05-07 16:09] LABS: Free T4 Free Thyroxine 1.08 ng/mL (0.78-2.19)
== END 2022-05-07 14:10 | disposition home or self-care (01) ==
LOC: ANHLAB 14:13
PROVIDERS: PCP Nurse Practitioner Adult Health; Visit Provider Internal Medicine Cardiovascular Disease
DX: I47.1 Supraventricular tachycardia (principal); I47.29 Other ventricular tachycardia
CPT/HCPCS: 36415; 80048; 83735; 84439; 84443

== ENCOUNTER 2022-05-17 09:01 | Emergency (ER) | payer MEDICARE, SELFPAY ==
[2022-05-17] VITALS (7 sets, daily range): BP systolic 99–137; BP diastolic 57–73; PULSE 87–214; RESP 15–20; TEMP 36.5; O2SAT 95–98
--- NOTE | ~2022-05-17 | XR_ITS ---
XR chest 1V portable DATE: 05/17/2022 09:49 INDICATION: Shortness of breath, cough, tachycardia TECHNIQUE: Portable upright AP chest on May 17, 2022 at 0947 hours COMPARISON: March 01, 2021 portable AP chest FINDINGS: Minimal infiltrate or atelectasis may be present at the lung bases. The lungs otherwise fabián ear clear. Heart size is borderline. No pleural effusion or pulmonary mass congestion or pneumothorax. Osteopenia. IMPRESSION: Possible minimal infiltrate or atelectasis at the lung bases Reviewed, dictated and finalized at location A.
--- NOTE | 2022-05-17 09:08 | ECG_ITS ---
Measurements Intervals [place] Rate: 209 P: [place]: 0 QRS: 34 QRSD: 90 T: 0 QT: 207 QTc: 387 Interpretive Statements SUPRAVENTRICULAR TACHYCARDIA ST ABNORMALITY CONSIDER SUBENDOMYOCARDIAL ISCHEMIA ABNORMAL ECG COMPARED TO ECG 03/02/2021 14:08:53 SUPRAVENTRICULAR TACHYCARDIA IS NOT PRESENT Electronically Signed On 05-17-2022 15:30:24 CDT by Jr Garner M.D.
--- NOTE | 2022-05-17 09:27 | PC.NURSE ---
Pt HR 213 09:28 6mg of Adenosive given with positive result with HR 108 regular.
--- NOTE | 2022-05-17 09:30 | ED.GENADULT ---
HPI - General Adult General Chief complaint: Arrhythmia/Palpitations Stated complaint: heart monitor is alarming, c/o SOB, KONGI sx's Time Seen by Provider: 05/17/22 09:19 History of Present Illness HPI narrative: 76-year-old female presented the emergency department for evaluation of rapid heart rate. Patient does have a prior history of supraventricular tachycardia and patient has been following up with Dr. Rea. Patient's heart monitor alarmed and patient was called and told to present to the emergency department. Patient's heart alarm went off at 2 AM patient did not present until later in the morning. Upon arrival to the ED patient's heart rate was 220. Patient states she was having some lightheadedness but denied any chest pain or shortness of breath. Patient has been following with Dr. Rea and ultimately going to have follow-up electrophysiology. Patient reports she has had increased cough over the last few days. Related Data Home Medications Medication Instructions Recorded Confirmed albuterol sulfate 90 mcg/actuation 90 mcg inhalation Q4-6H PRN 02/12/21 03/01/21 aerosol inhaler shortness of breath budesonide-formoterol HFA 80 2 inh inhalation BID 02/12/21 03/01/21 mcg-4.5 mcg/actuation aerosol inhaler fluticasone propionate 50 2 spray intranasal BID 02/12/21 03/01/21 mcg/actuation nasal spray,suspension losartan 100 1 tablet PO DAILY 02/12/21 03/01/21 mg-hydrochlorothiazide 25 mg tablet olanzapine 7.5 mg tablet 7.5 mg PO HS 02/12/21 03/01/21 trazodone 100 mg tablet 100 mg PO HS 02/12/21 03/01/21 Allergies Allergy/AdvReac Type Severity Reaction Status Date / Time aspirin Allergy Rash Verified 05/17/22 09:33 codeine Allergy Rash Verified 05/17/22 09:33 erythromycin base Allergy Itching Verified 05/17/22 09:33 propoxyphene [From Darvon] Allergy Rash Verified 05/17/22 09:33 Review of Systems Review of Systems: All systems reviewed & are unremarkable except as noted in HPI and below PMFSH Past Medical History Medical History Anxiety and depression Arthritis Chronic obstructive pulmonary disease Degenerative disc disease Gastroesophageal reflux disease History of GI bleed Hypertension Pulmonary embolism Surgical History Surgical History History of appendectomy History of colonoscopy with polypectomy Family History Family History Father Acute myocardial infarction Mother Diabetes mellitus Other Chronic obstructive pulmonary disease Social History Social History Social History: Surrogate decision maker: Rizwana Yeung or Ashlyn Orr, daughters. Code status: Full code. Smoking packs per day: 1.5 Smoking cigarettes per day: 30.0 Years smoked: 40 Smoking pack-years: 60.00 Smoking status: Former smoker Tobacco type: cigarettes Alcohol intake: current Alcohol use details: 1 drink every 3 months. Substance use: current Substance use type: marijuana Living arrangements: with family Exam Narrative: APPEARANCE: Well appearing HEAD: normocephalic, atraumatic. EYES: PERRLA/EOMI, conjunctivae clear. NOSE: Normal no drainage NECK: Supple. No adenopathy, no masses. RESPIRATORY: Airway patent, respirations nonlabored. Clear to auscultation bilaterally, no rales, rhonchi, wheezing. CARDIOVASCULAR: Arrived in supraventricular tachycardia ABDOMINAL: Soft, nontender, nondistended, normal bowel sounds MUSCULOSKELETAL: Moves all extremities. Strength/ROM intact, No edema, No calf tenderness. NEURO: Alert. Cranial nerves II through XII intact. Grossly intact SKIN: Warm, dry. Normal Color Course Course Emergency Course: 76-year-old female with history of SVT arriving with a heart rate of 220. Patient was normotensive and denies any pain
--- NOTE | 2022-05-17 09:32 | ECG_ITS ---
Measurements Intervals [place] Rate: 107 P: 33 VT: 178 QRS: 17 QRSD: 89 T: 43 QT: 329 QTc: 440 Interpretive Statements SINUS TACHYCARDIA WITH OCCASIONAL SUPRAVENTRICULAR PREMATURE COMPLEXES BASELINE ARTIFACT LOW QRS VOLTAGE IN PRECORDIAL LEADS BORDERLINE ECG COMPARED TO ECG 05/17/2022 09:13:33 SINUS TACHYCARDIA HAS REPLACED SVT ST ABNORMALITIES HAVE RESOLVED Electronically Signed On 05-17-2022 15:31:49 CDT by Jr Garner M.D.
[2022-05-17 09:33] LABS: Basophils Absolute Auto 0.1 K/mm3 (0.0-0.1); Basophils Percent Auto 1.5 % (0.2-1.2); Eosinophils Absolute Auto 0.2 K/mm3 (0-0.3); Eosinophils Percent Auto 2.2 % (0-4.4); Hematocrit 42.1 % (37.0-47.0); Hemoglobin 13.7 g/dL (12.0-15.0); Immature Granulocyte Absolute 0.02 K/mm3 (0.00-0.031); Immature Granulocyte Percent A 0.3 % (0-0.5); Lymphocytes Absolute Auto 1.51 K/mm3 (0.9-3.2); Mean Corpuscular HGB Conc 32.5 g/dl (32-36); Mean Corpuscular Hemoglobin 30.9 pg (26-34); Mean Corpuscular Volume 94.8 fl (80-100); Monocytes Absolute Auto 0.7 K/mm3 (0.1-0.6); Monocytes Percent Auto 10.8 % (2.6-8.5); Neutrophils Absolute Auto 4.4 K/mm3 (1.3-6.7); Neutrophils Percent Auto 63.2 % (45.5-73.1); Platelet Count Result 197 k/mm3 (150-375); Red Blood Count 4.44 M/mm3 (4.2-5.4); Red Cell Distribution Width 12.6 % (11.5-14.5); White Blood Count 6.9 K/mm3 (4.5-10.0)
[2022-05-17 09:43] LABS: Alanine Aminotransferase 22 U/L (6-35); Albumin Level 4.5 g/dL (3.5-5.1); Alkaline Phosphatase 87 U/L (38-126); Anion Gap 7 mmol/L (8-16); Aspartate Amino Transferase 25 U/L (14-36); Bilirubin,Total 0.5 mg/dL (0.2-1.3); Blood Urea Nitrogen 13 mg/dL (7-17); Calcium 9.2 mg/dL (8.4-10.2); Carbon Dioxide 33 mmol/L (22-30); Chloride 99 mmol/L (98-107); Estimated CRCL calculation 48 ml/min; Estimated Glomerular Filt Rate > 60; Glucose 105 mg/dL (65-110); Lipase 29 U/L (23-300); Potassium 3.6 mmol/L (3.4-5.0); Sodium 139 mmol/L (137-145)
[2022-05-17 09:44] LABS: Prothrombin Time 12.7 Seconds (11.1-14.7)
[2022-05-17 09:45] LABS: Partial Thromboplastin Time 23.8 SECONDS (22.3-36.8)
[2022-05-17 09:54] LABS: Troponin I < 0.012 ng/mL (0.000-0.034)
[2022-05-17 10:09] LABS: Influenza A QL RT-PCR Negative (Negative); Influenza B QL RT-PCR Negative (Negative); SARS-CoV-2 RNA PCR Negative
[2022-05-17 12:47] LABS: Troponin I < 0.012 ng/mL (0.000-0.034)
[2022-05-17] MEDS: DOXYCYCLINE HYCLATE 100 MG TABLET PO (13:54)
[2022-05-17] MEDS: dilTIAZem HCL 60 MG TABLET PO (13:54)
== END 2022-05-17 14:04 | disposition home or self-care (01) ==
PROVIDERS: Emergency Provider Emergency Medicine
DX: I47.1 Supraventricular tachycardia (principal); J40 Bronchitis, not specified as acute or chronic; I10 Essential (primary) hypertension; J44.9 Chronic obstructive pulmonary disease, unspecified; F41.8 Other specified anxiety disorders; Z86.711 Personal history of pulmonary embolism; Z79.51 Long term (current) use of inhaled steroids; Z87.891 Personal history of nicotine dependence; F12.90 Cannabis use, unspecified, uncomplicated; Z20.822 Contact with and (suspected) exposure to COVID-19
CPT/HCPCS: 36415; 71045; 80053; 83690; 84484; 85025; 85610; 85730; 87636; 93005; 99284; A9270; J0153; J7030

== ENCOUNTER 2022-06-28 09:13 | Outpatient (CLI) | payer MEDICARE, SELFPAY ==
[2022-06-28 09:49] LABS: Basophils Absolute Auto 0.1 K/mm3 (0.0-0.1); Basophils Percent Auto 1.1 % (0.2-1.2); Eosinophils Absolute Auto 0.1 K/mm3 (0-0.3); Eosinophils Percent Auto 1.1 % (0-4.4); Hematocrit 42.8 % (37.0-47.0); Hemoglobin 14.1 g/dL (12.0-15.0); Immature Granulocyte Absolute 0.02 K/mm3 (0.00-0.031); Immature Granulocyte Percent A 0.2 % (0-0.5); Lymphocytes Absolute Auto 1.47 K/mm3 (0.9-3.2); Lymphocytes Percent Auto 18.2 % (18.3-44.2); Mean Corpuscular HGB Conc 32.9 g/dl (32-36); Mean Corpuscular Hemoglobin 30.1 pg (26-34); Mean Corpuscular Volume 91.3 fl (80-100); Mean Platelet Volume 10.3 fl (7.4-10.4); Monocytes Absolute Auto 0.8 K/mm3 (0.1-0.6); Neutrophils Absolute Auto 5.6 K/mm3 (1.3-6.7); Neutrophils Percent Auto 69.4 % (45.5-73.1); Platelet Count Result 234 k/mm3 (150-375); Red Blood Count 4.69 M/mm3 (4.2-5.4); Red Cell Distribution Width 12.4 % (11.5-14.5); White Blood Count 8.1 K/mm3 (4.5-10.0)
[2022-06-28 09:57] LABS: Anion Gap 5 mmol/L (8-16); Blood Urea Nitrogen 10 mg/dL (7-17); Calcium 8.8 mg/dL (8.4-10.2); Carbon Dioxide 34 mmol/L (22-30); Chloride 96 mmol/L (98-107); Estimated Glomerular Filt Rate > 60; Glucose 98 mg/dL (65-110); Potassium 3.4 mmol/L (3.4-5.0); Sodium 135 mmol/L (137-145)
== END 2022-06-28 09:14 | disposition home or self-care (01) ==
PROVIDERS: Visit Provider Internal Medicine Cardiovascular Disease
DX: Z01.812 Encounter for preprocedural laboratory examination (principal)
CPT/HCPCS: 36415; 80048; 85025

== ENCOUNTER 2022-08-18 09:36 | Outpatient (CLI) | payer MEDICARE, SELFPAY ==
--- NOTE | ~2022-08-18 | XR_ITS ---
Right Knee Technique: AP, lateral, and sunrise views were obtained. Clinical History: Pain Findings: No fracture or dislocation is seen. Osseous alignment is anatomic. There is mild degenerati ve spurring at the medial joint line. Soft tissues are unremarkable. No joint effusion is seen. Impression: Mild degenerative spurring at the medial joint line. Reviewed, dictated and finalized at [facility]. Impression: Mild degenerative spurring at the medial joint line.
== END 2022-08-18 09:37 | disposition home or self-care (01) ==
LOC: ANHIMG 09:48
DX: M25.561 Pain in right knee (principal); M25.562 Pain in left knee
CPT/HCPCS: 73564

== ENCOUNTER 2022-09-05 07:10 | Inpatient (IN) | payer MEDICARE, SELFPAY ==
[2022-09-05] VITALS (29 sets, daily range): BP systolic 147–180; BP diastolic 71–95; PULSE 90–121; RESP 12–32; TEMP 36.2–36.8; O2SAT 93–99
--- NOTE | ~2022-09-05 | US_ITS ---
US venous doppler [facility] DATE: 09/05/2022 22:47 INDICATION: Pulmonary embolus TECHNIQUE: Real-time and color flow imaging and Doppler analysis of the veins of the lower extremitie s COMPARISON: None FINDINGS: There is spontaneous and phasic flow and normal augmentation and color flow signal and norm al compression of the deep veins of both lower extremities. The greater saphenous veins are patent. IMPRESSION: No evidence of deep venous thrombosis of the lower extremities Reviewed, dictated and finalized at [facility]. Reviewed, dictated and finalized at location [facility].
--- NOTE | ~2022-09-05 | XR_ITS ---
Portable chest x-ray Comparison: 05/17/2022 Clinical History: Hemoptysis Findings: Lungs are clear, without focal consolidation or pleural effusion. Cardiomediastinal silho uette is stable. Bones and soft tissues are unremarkable. Impression: Clear lungs. Reviewed, dictated and finalized at location . Impression: Clear lungs.
--- NOTE | ~2022-09-05 | CT_ITS ---
EXAMINATION: CTA chest PE protocol DATE: 09/05/2022 08:50 INDICATION: Shortness of breath, cough, hemoptysis TECHNIQUE: Computed tomography angiography (CTA) of the chest was performed with 100 mL Omnipaque-350 intravenous contrast timed to evaluate the pulmonary arteries. Coronal maximum intensity projection 3D-reconstructions were created by the technologist. Automated exposure control and iterative reconst ruction technique were employed. Exam dose: 754.21 mGy-cm total exam DLP. COMPARISON: 09/05/2022 portable AP chest FINDINGS: There is diagnostic contrast enhancement of the pulmonary arteries. Intraluminal filling de fects are noted in subsegmental posteromedial and posterior right lower lobe pulmonary arteries.. No thoracic aortic aneurysm or dissection. No hilar or mediastinal mass lesion or lymphadenopathy. There are calcified left hilar nodes and calc ified left lower lobe pulmonary granulomas consistent with old pulmonary granulomatous disease. No pulmonary infiltrate or consolidation, pleural effusion, pulmonary vascular congestion or pneumoth orax. Cardiomegaly. Small pericardial effusion. Normal morphology of the adrenal glands. Small sliding hiatal hernia. Diverticulosis of the colon. Hemangioma of L1 vertebral body. No suspicious osteolytic or osteoblastic lesions are noted. IMPRESSION: Mild subsegmental right lower lobe pulmonary embolism Small pericardial effusion Cardiomegaly Old pulmonary granulomatous disease Reviewed, dictated and finalized at [facility]. Reviewed, dictated and finalized at location [facility].
--- NOTE | 2022-09-05 07:20 | ECG_ITS ---
Measurements Intervals [place] Rate: 108 P: 42 [place]: 189 QRS: 5 QRSD: 81 T: 29 QT: 332 QTc: 445 Interpretive Statements SINUS TACHYCARDIA LOW QRS VOLTAGE IN PRECORDIAL LEADS CONSIDER INFERIOR INFARCT, AGE INDETERMINATE ABNORMAL ECG COMPARED TO ECG 05/17/2022 09:39:23 NO SIGNIFICANT CHANGES Electronically Signed On 09-05-2022 7:43:18 CDT by Ap Barragan D.O.
--- NOTE | 2022-09-05 07:43 | ED.SOB ---
HPI - SOB/Dyspnea General Chief Complaint: Shortness of Breath/Dyspnea Stated Complaint: coughed up blood Time Seen by Provider: 09/05/22 07:13 History of Present Illness HPI Narrative: This is a 77-year-old female, with past history of PE, COPD, who presents to the emergency department complaining of hemoptysis and shortness of breath. The patient states over the last 2 days, she has had some cough productive of small amount of green sputum. Today however, she coughed and noted bright red blood. This occurred twice with approximately 2 tablespoons of blood. She has noticed increasing shortness of breath and mild chest pressure that does not radiate. She denies loss of consciousness or focal weakness/numbness. Related Data Home Medications Medication Instructions Recorded Confirmed albuterol sulfate 90 mcg/actuation 90 mcg inhalation Q4-6H PRN 02/12/21 03/01/21 aerosol inhaler shortness of breath budesonide-formoterol HFA 80 2 inh inhalation BID 02/12/21 03/01/21 mcg-4.5 mcg/actuation aerosol inhaler fluticasone propionate 50 2 spray intranasal BID 02/12/21 03/01/21 mcg/actuation nasal spray,suspension losartan 100 1 tablet PO DAILY 02/12/21 03/01/21 mg-hydrochlorothiazide 25 mg tablet olanzapine 7.5 mg tablet 7.5 mg PO HS 02/12/21 03/01/21 trazodone 100 mg tablet 100 mg PO HS 02/12/21 03/01/21 Allergies Allergy/AdvReac Type Severity Reaction Status Date / Time aspirin Allergy Rash Verified 05/17/22 09:33 codeine Allergy Rash Verified 05/17/22 09:33 erythromycin base Allergy Itching Verified 05/17/22 09:33 propoxyphene [From Darvon] Allergy Rash Verified 05/17/22 09:33 Review of Systems Review of Systems: CONSTITUTIONAL: Denies fever, chills, or sweats. CARDIOVASCULAR: Chest pressure denies palpitations, or edema. RESPIRATORY: Cough productive of mucus and blood, dyspnea on exertion GASTROINTESTINAL: Denies abdominal pain, nausea, vomiting, or diarrhea. GENITOURINARY: Denies dysuria or hematuria. SKIN: Denies rash or itching. MUSCULOSKELETAL: Denies back pain, joint pain, or myalgia. NEUROLOGIC: Denies headache, numbness, dizziness, or weakness. PSYCHIATRIC: Denies anxiety or depression. [facility] Past Medical History Medical History Anxiety and depression Arthritis Chronic obstructive pulmonary disease Degenerative disc disease Gastroesophageal reflux disease History of GI bleed Hypertension Pulmonary embolism Surgical History Surgical History History of appendectomy History of colonoscopy with polypectomy Family History Family History Father Acute myocardial infarction Mother Diabetes mellitus Other Chronic obstructive pulmonary disease Social History Social History Social History: Surrogate decision maker: Rizwana Yeung or Ashlyn Orr, daughters. Code status: Full code. Smoking packs per day: 1.5 Smoking cigarettes per day: 30.0 Years smoked: 40 Smoking pack-years: 60.00 Smoking status: Former smoker Tobacco type: cigarettes Alcohol intake: current Alcohol use details: 1 drink every 3 months. Substance use: current Substance use type: marijuana Living arrangements: with family Exam Narrative: GENERAL: Well-developed, well-nourished, and in no acute distress. HEAD: Normocephalic, atraumatic. EYES: PERRLA and EOMI. ENT: Nares clear, no rhinorrhea or epistaxis. Mucous membranes dry. Oropharynx without tonsillar hypertrophy exudate or other lesions. CHEST: Faint end expiratory wheeze bilaterally. No respiratory distress. No wheezes rales or rhonchi HEART: Tachycardic with regular rhythm. No murmur heard. Normal peripheral pulses. ABDOMEN: Soft, nontender, nondistended, normal active bowel sounds. EXTREMITIES: Norm
[2022-09-05] MEDS: SODIUM CHLORIDE 0.9% IV 1,000 ML 999 ML IV CONT (08:00)
[2022-09-05 08:12] LABS: Basophils Absolute Auto 0.1 K/mm3 (0.0-0.1); Basophils Percent Auto 1.1 % (0.2-1.2); Eosinophils Absolute Auto 0.1 K/mm3 (0-0.3); Eosinophils Percent Auto 1.8 % (0-4.4); Hematocrit 41.6 % (37.0-47.0); Hemoglobin 13.7 g/dL (12.0-15.0); Immature Granulocyte Absolute 0.01 K/mm3 (0.00-0.031); Immature Granulocyte Percent A 0.2 % (0-0.5); Lymphocytes Absolute Auto 1.46 K/mm3 (0.9-3.2); Lymphocytes Percent Auto 23.4 % (18.3-44.2); Mean Corpuscular HGB Conc 32.9 g/dl (32-36); Mean Corpuscular Hemoglobin 30.3 pg (26-34); Mean Platelet Volume 10.3 fl (7.4-10.4); Monocytes Absolute Auto 0.5 K/mm3 (0.1-0.6); Monocytes Percent Auto 8.2 % (2.6-8.5); Neutrophils Absolute Auto 4.1 K/mm3 (1.3-6.7); Neutrophils Percent Auto 65.3 % (45.5-73.1); Platelet Count Result 194 k/mm3 (150-375); Red Blood Count 4.52 M/mm3 (4.2-5.4); Red Cell Distribution Width 14.5 % (11.5-14.5); White Blood Count 6.2 K/mm3 (4.5-10.0)
[2022-09-05 08:20] LABS: Alanine Aminotransferase 24 U/L (6-35); Albumin Level 4.1 g/dL (3.5-5.1); Alkaline Phosphatase 79 U/L (38-126); Anion Gap 10 mmol/L (8-16); Aspartate Amino Transferase 28 U/L (14-36); Bilirubin,Total 0.5 mg/dL (0.2-1.3); Blood Urea Nitrogen 13 mg/dL (7-17); Calcium 9.1 mg/dL (8.4-10.2); Carbon Dioxide 29 mmol/L (22-30); Chloride 101 mmol/L (98-107); Estimated CRCL calculation 54 ml/min; Estimated Glomerular Filt Rate > 60; Glucose 99 mg/dL (65-110); INR 0.9; Potassium 3.1 mmol/L (3.4-5.0); Prothrombin Time 12.8 Seconds (11.1-14.7); Sodium 140 mmol/L (137-145)
[2022-09-05 08:31] LABS: Troponin I < 0.012 ng/mL (0.000-0.034)
[2022-09-05] MEDS: POTASSIUM CHLORIDE 20 MEQ PACKET (FOR LIQUID) 40 MEQ PO (09:06)
[2022-09-05 10:23] LABS: NT Pro B Type Natriuretic Pept 181 pg/mL (19.9-100)
--- NOTE | 2022-09-05 11:04 | PC.NURSE ---
Patient report given to Yareli Bardales. All questions answered and care of patient transferred.
[2022-09-05] MEDS: HEPARIN SOD/D5W 100 UNITS/ML 25,000 UNITS/250 ML BAG 12 UNITS IV CONT (11:15)
[2022-09-05 11:26] LABS: Hematocrit 38.8 % (37.0-47.0); Hemoglobin 12.6 g/dL (12.0-15.0)
[2022-09-05 11:48] LABS: Troponin I < 0.012 ng/mL (0.000-0.034)
--- NOTE | 2022-09-05 12:17 | ADMGEN ---
This patient, Cady Brooks, was admitted to [facility] Surg Room 332-02. Patient/family oriented to hospital policies and general routines including ID bracelet, bed and alarms, visiting hours, pain management, procedures, bathroom and other care routines, personal items, smoking policy, room service/diet, and visiting hours. Information on how to activate the Rapid Response Team has been discussed. Patient/Family are encouraged to report perceived risks to care and to ask questions if they do not understand what they are told or what they should do.
--- NOTE | 2022-09-05 13:40 | PM.IMHP ---
H&P: HPI History of Present Illness Date/Time: 09/05/22 13:40 Chief Complaint: Shortness of breath Narrative: This is a 77-year-old female patient who has a history of SVT. She has also had a history of a PE in the past. The patient stated that she recently had an ablation. She was also placed on Cardizem for the SVT. Today the patient came in because she had shortness of breath and hemoptysis. She stated when she dove to was bright red blood. The patient stated that she had increased shortness of breath and some mild chest pain. Her potassium was low at 3.1 and was replaced orally. BNP 181. Chest x-ray was read as lungs are clear without focal consolidation or pleural effusion. Cardiomediastinal silhouette is stable. Bones and soft tissues are unremarkable. Clear lungs. Chest CTA was read is the following IMPRESSION:? 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 Mild subsegmental right lower lobe pulmonary embolism Small pericardial effusion Cardiomegaly Old pulmonary granulomatous disease The patient is being admitted to observation status on the date of service of 09/05/2022. Review of Systems Review of Systems: All systems reviewed & are unremarkable except as noted in HPI and below Constitutional: Constitutional: Reports as per HPI and Reports no additional constitutional complaints Eyes: Eyes: Reports as per HPI and Reports no additional eye complaints ENT: Reports system reviewed and no additional complaints, except as documented and Reports Normal hearing present Cardiovascular: Cardiovascular: Reports no additional cardiovascular complaints Respiratory: Respiratory: Reports no additional respiratory complaints and Reports no additional respiratory complaints Gastrointestinal: Gastrointestinal: Reports as per HPI and Reports no additional gastrointestinal complaints Musculoskeletal: Musculoskeletal: Reports no additional musculoskeletal complaints Integumentary/Breasts: Skin/Breast: Reports system reviewed and no additional complaints, except as docu and Reports as per HPI Neurologic: Reports system reviewed and no additional complaints, except as documented, Reports as per HPI and Reports Normal hearing present Psychiatric: Psychiatric: Reports no additional psychiatric complaints and Reports as per HPI Endocrine: Endocrine: Reports no additional endocrine complaints Hematologic/Lymphatic: Hematologic/Lymphatic: Reports no additional hematologic/lymphatic complaints Allergic/Immunologic: Allergic/Immunologic: Reports no additional allergic/immunologic complaints [facility] Past Medical History Medical History (Updated 09/05/22 @ 17:39 by Ana Charles NP) Anxiety and depression Arthritis Chronic obstructive pulmonary disease Degenerative disc disease Gastroesophageal reflux disease History of GI bleed Hypertension Insomnia Pulmonary embolism Surgical History Surgical History (Updated 09/05/22 @ 17:21 by Ana Charles NP) H/O cardiac radiofrequency ablation History of appendectomy History of cataract extraction History of colonoscopy with polypectomy Family History Family History Father Acute myocardial infarction Diabetes mellitus Mother Chronic obstructive pulmonary disease Social History Social History (Updated 09/05/22 @ 17:22 by Ana Charles NP) Social History: The patient had 6 children and 1 son of cancer. 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 She is and lives home alone. surrogate decision maker: Rizwana Yeung or Ashlyn Orr, daughters. Former smoker. Code status: Full code. Smoking packs per day: 2 Smoking cigarettes per day: 40.0 Years smoked: 50 Smoking pack-years: 100.00 Smoking status: Former smoker Tobacco type: cigarettes Second hand t
[2022-09-05 17:34] LABS: Hematocrit 37.1 % (37.0-47.0)
[2022-09-05 19:26] LABS: Partial Thromboplastin Time 64.5 SECONDS (22.3-36.8)
[2022-09-05 19:31] LABS: Anion Gap 6 mmol/L (8-16); Blood Urea Nitrogen 13 mg/dL (7-17); Calcium 8.6 mg/dL (8.4-10.2); Carbon Dioxide 29 mmol/L (22-30); Chloride 100 mmol/L (98-107); Estimated CRCL calculation 48 ml/min; Estimated Glomerular Filt Rate > 60; Glucose 101 mg/dL (65-110); Magnesium 1.8 mg/dL (1.6-2.3); Potassium 3.4 mmol/L (3.4-5.0); Sodium 135 mmol/L (137-145)
[2022-09-05] MEDS: HEPARIN SODIUM 5,000 UNITS/ML VIAL 2500 UNITS IV PUSH (19:38)
[2022-09-05] MEDS: HEPARIN SOD/D5W 100 UNITS/ML 25,000 UNITS/250 ML BAG 13 UNITS IV CONT (19:44)
[2022-09-05] MEDS: traZODone HCL 50 MG TABLET 100 MG PO (19:57)
[2022-09-05] MEDS: OLANZapine 5 MG TABLET PO (19:57)
[2022-09-05] MEDS: OLANZapine 2.5 MG TABLET PO (19:57)
[2022-09-05 23:24] LABS: Hematocrit 36.3 % (37.0-47.0); Hemoglobin 11.9 g/dL (12.0-15.0)
[2022-09-06] VITALS (9 sets, daily range): BP systolic 119–144; BP diastolic 64–80; PULSE 84–106; RESP 14–18; TEMP 36.3–36.6; O2SAT 95–96
--- NOTE | 2022-09-06 | ECHO_ITS ---
Patient Info Name: Cady Brooks Age: 77 years : 1945 Gender: Female Ht: 61 in Wt: 207 lbs BSA: 2.06 m2 HR: 95 bpm BP: 144 / 80 mmHg Heart Rhythm: Sinus Rhythm Technical Quality: Fair Exam Date: 09/06/2022 9:03 AM Exam Location: [facility] Pulmonary Exam Room: [facility] Patient Status: Outpatient Admit Date: 09/05/2022 Staff Ordering Physician: Ana Charles NP Retail Property Manager: Wen Moore RDCS Attending Provider: Brandon Smallwood MD Referring Physician: Araceli ROBERT; Exam Type: CA echo doppler color flow Study Info Indications - PULM EMBOISM Complete two-dimensional, color flow and Doppler transthoracic echocardiogram is performed. Summary 1. Complete two-dimensional, color flow and Doppler transthoracic echocardiogram is performed. 2. Normal left ventricular size thickness and hyperdynamic systolic function. 3. No evidence of right-sided pressure overload. 4. Small amount of tricuspid insufficiency velocities are consistent RV systolic pressure of 34 mmHg. Left Ventricle Left ventricular chamber dimension is normal. Left ventricular systolic function is hyperdynamic, estimated at >70%. The left ventricular diastolic function is grade I diastolic dysfunction. Right Ventricle Right ventricular chamber dimension is normal. Left Atria Left atrial chamber dimension is normal. Right Atria Right atrial chamber dimension is normal. Aortic Valve The aortic valve is trileaflet. There is mild aortic valve sclerosis. Pulmonic Valve The pulmonic valve is not well visualized. Mitral Valve The mitral valve has normal leaflets. The mitral valve annulus is mildly calcified. Tricuspid Valve The tricuspid valve leaflets are normal. There is mild tricuspid valve regurgitation. No pulmonary hypertension, estimated pulmonary arterial systolic pressure is 39 mmHg. Pericardium/Pleural The pericardium appears normal. Aorta The aortic root size at the sinus of Valsalva is normal. Left Ventricular Outflow Tract Name Value Normal LVOT 2D LVOT Diameter 2.0 cm LVOT Doppler LVOT Peak Gradient 5 mmHg LVOT Mean Gradient 3 mmHg LVOT VTI 19 cm LVOT VTI/AV VTI Ratio 0.7 LVOT Stroke Volume 58 ml LVOT CO 15.0 l/min LVOT CI 7.3 l/min/m2 Pulmonic Valve Name Value Normal PV Doppler PV Peak Gradient 6 mmHg Mitral Valve Name Value Normal MV Doppler MV [place] 604 cm/s2 MV PHT 44 ms
[2022-09-06 01:55] LABS: Partial Thromboplastin Time 138.7 SECONDS (22.3-36.8)
[2022-09-06] MEDS: HEPARIN SOD/D5W 100 UNITS/ML 25,000 UNITS/250 ML BAG 13 UNITS IV CONT (02:04)
[2022-09-06] MEDS: HEPARIN SOD/D5W 100 UNITS/ML 25,000 UNITS/250 ML BAG 11 UNITS IV CONT ×2 (02:59→10:56)
[2022-09-06 07:43] LABS: Basophils Absolute Auto 0.1 K/mm3 (0.0-0.1); Basophils Percent Auto 1.1 % (0.2-1.2); Eosinophils Absolute Auto 0.1 K/mm3 (0-0.3); Eosinophils Percent Auto 1.9 % (0-4.4); Hemoglobin 13.5 g/dL (12.0-15.0); Immature Granulocyte Absolute 0.01 K/mm3 (0.00-0.031); Immature Granulocyte Percent A 0.2 % (0-0.5); Lymphocytes Absolute Auto 1.86 K/mm3 (0.9-3.2); Mean Corpuscular HGB Conc 32.9 g/dl (32-36); Mean Corpuscular Hemoglobin 30.3 pg (26-34); Mean Corpuscular Volume 91.9 fl (80-100); Mean Platelet Volume 10.5 fl (7.4-10.4); Monocytes Absolute Auto 0.4 K/mm3 (0.1-0.6); Monocytes Percent Auto 6.9 % (2.6-8.5); Neutrophils Absolute Auto 3.9 K/mm3 (1.3-6.7); Neutrophils Percent Auto 60.9 % (45.5-73.1); Platelet Count Result 213 k/mm3 (150-375); Red Blood Count 4.46 M/mm3 (4.2-5.4); Red Cell Distribution Width 14.7 % (11.5-14.5); White Blood Count 6.4 K/mm3 (4.5-10.0)
[2022-09-06 07:56] LABS: Anion Gap 5 mmol/L (8-16); Blood Urea Nitrogen 10 mg/dL (7-17); Calcium 9.2 mg/dL (8.4-10.2); Carbon Dioxide 30 mmol/L (22-30); Chloride 101 mmol/L (98-107); Estimated CRCL calculation 54 ml/min; Estimated Glomerular Filt Rate > 60; Glucose 100 mg/dL (65-110); Potassium 3.8 mmol/L (3.4-5.0); Sodium 136 mmol/L (137-145)
[2022-09-06] MEDS: PERFLUTREN LIPID MICROSPHERES 1.5 ML VIAL DILUTED TO 10 ML TOTAL VOLUME IV PUSH (09:25)
[2022-09-06] MEDS: LOSARTAN POTASSIUM 100 MG TABLET PO (10:53)
[2022-09-06] MEDS: dilTIAZem HCL CD 240 MG CAP.24HR PO (10:54)
[2022-09-06] MEDS: PANTOPRAZOLE 40 MG TABLET PO (10:54)
[2022-09-06] MEDS: FUROSEMIDE 20 MG TABLET PO (10:59)
[2022-09-06] MEDS: traMADol HCL (*CRX) 50 MG TABLET PO (11:01)
--- NOTE | 2022-09-06 15:07 | PM.IMPN ---
Progress Note: A&P Assessment and Plan (1) Pulmonary embolism: Qualifiers: Acute cor pulmonale presence: unspecified Chronicity: acute Pulmonary embolism type: other Qualified Code(s): I26.99 - Other pulmonary embolism without acute cor pulmonale Code(s): I26.99 - Other pulmonary embolism without acute cor pulmonale Status: Acute Assessment and Plan: the patient stated that many years ago she did have a pulmonary embolus. Venous duplex negative. Echo is pending.. The patient stated that she has been more labile in sedentary lifestyle. She also stated she recently had a procedure with the cardiac ablation. The patient is currently on heparin drip. The patient had been on Coumadin in the past and does not want to be treated with Coumadin. She would rather be treated with Xarelto or Eliquis. Hemoptysis will be monitored with current anticoagulation if stable will switch to oral anticoagulation tomorrow (2) Hypokalemia: Code(s): E87.6 - Hypokalemia Status: Acute Assessment and Plan: Replace and monitor (3) Supraventricular tachycardia: Code(s): I47.1 - Supraventricular tachycardia Status: Acute Assessment and Plan: The patient stated that she recently had in ablation. Continue with her Cardizem. (4) Chronic obstructive pulmonary disease: Qualifiers: COPD type: unspecified COPD Qualified Code(s): J44.9 - Chronic obstructive pulmonary disease, unspecified Code(s): J44.9 - Chronic obstructive pulmonary disease, unspecified Status: Acute Assessment and Plan: Continue with her albuterol inhaler. (5) Hypertension: Qualifiers: Hypertension type: unspecified Qualified Code(s): I10 - Essential (primary) hypertension Code(s): I10 - Essential (primary) hypertension Status: Acute Assessment and Plan: The patient is on Cardizem for her SVT and losartan. I did hold her hydrochlorothiazide due to the low potassium. She is also on Lasix as well. May consider giving her a supplemental potassium daily if she is going to continue with the hydrochlorothiazide. (6) Insomnia: Code(s): G47.00 - Insomnia, unspecified Status: Acute Assessment and Plan: continue with her trazodone. Plan Chronic pain continue with her home dose of tramadol mood disorder continue Zyprexa Subjective Date/time seen: 09/06/22 15:07 Interval history: no new complaints, no fever, chills, shortness of breath on exertion no chest pain echo done earlier today. Review of Systems Review of Systems: All systems reviewed & are unremarkable except as noted in HPI and below Exam Narrative: GENERAL: Well-developed, well-nourished, and in no acute distress. HEAD: Normocephalic, atraumatic. EYES: PERRLA and EOMI. ENT: Nares clear, no rhinorrhea or epistaxis.? Mucous membranes dry. CHEST: No respiratory distress.? No wheezes rales or rhonchi HEART: Regular rate regular rhythm.? No murmur heard.? Normal peripheral pulses. ABDOMEN: Soft, nontender, nondistended, normal active bowel sounds. EXTREMITIES: Normal range of motion.? No edema. SKIN: Warm, dry, no rash. NEURO: No focal deficits.? Alert and oriented x3. PSYCH: Normal mood and affect. Objective Data Vital Signs Vital Signs: Vital Signs - 24 hr 09/05/22 16:00 09/05/22 20:00 09/05/22 22:00 Temperature 97.1 F L Pulse Rate 90 90 92 Respiratory Rate 18 18 Blood Pressure 147/95 H Pulse Oximetry 93 96 Oxygen Delivery Room Air 09/05/22 20:00 09/06/22 00:00 09/06/22 04:00 Temperature Pulse Rate 95 94 95 Respiratory Rate Blood Pressure Pulse Oximetry Oxygen Delivery 09/06/22 06:00 Temperature 97.9 F Pulse Rate 105 H Respiratory Rate 18 Blood Pressure 144/80 H Pulse Oximetry 96 Oxygen Delivery Intake/Output Intake/Output: Intake & Output 09/03/22 09/04/22 09/05/22 09/06/22 23:59 23
[2022-09-06] MEDS: HEPARIN SOD/D5W 100 UNITS/ML 25,000 UNITS/250 ML BAG 12 UNITS IV CONT (19:43)
[2022-09-06] MEDS: HEPARIN SODIUM 5,000 UNITS/ML VIAL 2500 UNITS IV PUSH (19:45)
--- NOTE | 2022-09-06 20:34 | PC.NURSE ---
Pt reports getting migraines. Pt reports that she takes tramadol 1-2 times per day. Pt states that tramadol helped. Pt tolerating heparin well. Pt has been monitored closely.
[2022-09-06] MEDS: OLANZapine 5 MG TABLET PO (21:14)
[2022-09-06] MEDS: OLANZapine 2.5 MG TABLET PO (21:14)
[2022-09-06] MEDS: traZODone HCL 50 MG TABLET 100 MG PO (21:14)
[2022-09-07] VITALS (11 sets, daily range): BP systolic 129–134; BP diastolic 59–75; PULSE 77–114; RESP 18–20; TEMP 35.7–36.6; O2SAT 93–96
[2022-09-07 02:11] LABS: Basophils Absolute Auto 0.1 K/mm3 (0.0-0.1); Basophils Percent Auto 1.2 % (0.2-1.2); Eosinophils Absolute Auto 0.1 K/mm3 (0-0.3); Eosinophils Percent Auto 2.1 % (0-4.4); Hematocrit 34.7 % (37.0-47.0); Hemoglobin 11.3 g/dL (12.0-15.0); Immature Granulocyte Absolute 0.01 K/mm3 (0.00-0.031); Immature Granulocyte Percent A 0.2 % (0-0.5); Lymphocytes Absolute Auto 1.88 K/mm3 (0.9-3.2); Lymphocytes Percent Auto 28.7 % (18.3-44.2); Mean Corpuscular HGB Conc 32.6 g/dl (32-36); Mean Corpuscular Hemoglobin 30.1 pg (26-34); Mean Corpuscular Volume 92.5 fl (80-100); Mean Platelet Volume 10.3 fl (7.4-10.4); Monocytes Absolute Auto 0.6 K/mm3 (0.1-0.6); Monocytes Percent Auto 9.8 % (2.6-8.5); Neutrophils Absolute Auto 3.8 K/mm3 (1.3-6.7); Platelet Count Result 184 k/mm3 (150-375); Red Blood Count 3.75 M/mm3 (4.2-5.4); Red Cell Distribution Width 14.9 % (11.5-14.5); White Blood Count 6.6 K/mm3 (4.5-10.0)
[2022-09-07 02:24] LABS: Alanine Aminotransferase 21 U/L (6-35); Albumin Level 3.3 g/dL (3.5-5.1); Alkaline Phosphatase 61 U/L (38-126); Anion Gap 2 mmol/L (8-16); Aspartate Amino Transferase 34 U/L (14-36); Bilirubin,Total 0.3 mg/dL (0.2-1.3); Blood Urea Nitrogen 12 mg/dL (7-17); Calcium 8.4 mg/dL (8.4-10.2); Carbon Dioxide 31 mmol/L (22-30); Chloride 100 mmol/L (98-107); Estimated CRCL calculation 54 ml/min; Estimated Glomerular Filt Rate > 60; Glucose 96 mg/dL (65-110); Magnesium 1.8 mg/dL (1.6-2.3); Potassium 3.3 mmol/L (3.4-5.0); Sodium 133 mmol/L (137-145)
[2022-09-07 02:33] LABS: Partial Thromboplastin Time 121.8 SECONDS (22.3-36.8)
[2022-09-07] MEDS: HEPARIN SOD/D5W 100 UNITS/ML 25,000 UNITS/250 ML BAG 11 UNITS IV CONT (05:59)
[2022-09-07] MEDS: FLUTICASONE/SALMETEROL 45-21 MCG INHALER 1 PUFF 2 PUFF INHALATION ×2 (08:50→20:05)
[2022-09-07] MEDS: LORATADINE 10 MG TABLET PO (09:22)
[2022-09-07] MEDS: PANTOPRAZOLE 40 MG TABLET PO (09:22)
[2022-09-07] MEDS: POTASSIUM CHLORIDE 20 MEQ ER TABLET 40 MEQ PO ×2 (09:23→12:59)
[2022-09-07] MEDS: dilTIAZem HCL CD 240 MG CAP.24HR PO (09:23)
[2022-09-07] MEDS: traMADol HCL (*CRX) 50 MG TABLET PO (09:23)
[2022-09-07] MEDS: FUROSEMIDE 20 MG TABLET PO (09:23)
[2022-09-07] MEDS: LOSARTAN POTASSIUM 100 MG TABLET PO (09:23)
[2022-09-07 09:41] LABS: Partial Thromboplastin Time 78.3 SECONDS (22.3-36.8)
--- NOTE | 2022-09-07 12:15 | PM.IMPN ---
Progress Note: A&P Assessment and Plan (1) Pulmonary embolism: Qualifiers: Acute cor pulmonale presence: unspecified Chronicity: acute Pulmonary embolism type: other Qualified Code(s): I26.99 - Other pulmonary embolism without acute cor pulmonale Code(s): I26.99 - Other pulmonary embolism without acute cor pulmonale Status: Acute Assessment and Plan: the patient stated that many years ago she did have a pulmonary embolus. Venous duplex negative. Echo reviewed. The patient stated that she has been more labile in sedentary lifestyle. She also stated she recently had a procedure with the cardiac ablation. The patient is currently on heparin drip. The patient had been on Coumadin in the past and does not want to be treated with Coumadin. She would rather be treated with Xarelto or Eliquis. Hemoptysis will be monitored with current anticoagulation if stable will switch to oral anticoagulation from tonight. (2) Hypokalemia: Code(s): E87.6 - Hypokalemia Status: Acute Assessment and Plan: Replace and monitor (3) Supraventricular tachycardia: Code(s): I47.1 - Supraventricular tachycardia Status: Acute Assessment and Plan: The patient stated that she recently had in ablation. Continue with her Cardizem. (4) Chronic obstructive pulmonary disease: Qualifiers: COPD type: unspecified COPD Qualified Code(s): J44.9 - Chronic obstructive pulmonary disease, unspecified Code(s): J44.9 - Chronic obstructive pulmonary disease, unspecified Status: Acute Assessment and Plan: With mild COPD exacerbation with some cough and expectoration. Continue with inhaler as ordered hold off on steroid not actively wheezing. (5) Hypertension: Qualifiers: Hypertension type: unspecified Qualified Code(s): I10 - Essential (primary) hypertension Code(s): I10 - Essential (primary) hypertension Status: Acute Assessment and Plan: The patient is on Cardizem for her SVT and losartan. I did hold her hydrochlorothiazide due to the low potassium. She is also on Lasix as well. May consider giving her a supplemental potassium daily if she is going to continue with the hydrochlorothiazide. (6) Insomnia: Code(s): G47.00 - Insomnia, unspecified Status: Acute Assessment and Plan: continue with her trazodone. Plan Chronic pain continue with her home dose of tramadol mood disorder continue Zyprexa Subjective Date/time seen: 09/07/22 12:15 Interval history: No overnight events. Shortness of breath on exertion. Still feels little shaky. No wheezes coughs up some green stuff. Remains afebrile Review of Systems Review of Systems: All systems reviewed & are unremarkable except as noted in HPI and below Exam Narrative: GENERAL: Well-developed, well-nourished, and in no acute distress. HEAD: Normocephalic, atraumatic. EYES: PERRLA and EOMI. ENT: Nares clear, no rhinorrhea or epistaxis.? Mucous membranes dry. CHEST: No respiratory distress.? No wheezes rales or rhonchi HEART: Regular rate regular rhythm.? No murmur heard.? Normal peripheral pulses. ABDOMEN: Soft, nontender, nondistended, normal active bowel sounds. EXTREMITIES: Normal range of motion.? No edema. SKIN: Warm, dry, no rash. NEURO: No focal deficits.? Alert and oriented x3. PSYCH: Normal mood and affect. Objective Data Vital Signs Vital Signs: Vital Signs - 24 hr 09/06/22 14:00 09/06/22 16:00 09/06/22 20:15 Temperature 97.9 F Pulse Rate 87 90 86 Respiratory Rate 14 Blood Pressure 124/64 Pulse Oximetry 95 Oxygen Delivery Fraction of Inspired Oxygen 09/06/22 20:15 09/06/22 22:00 09/07/22 00:00 Temperature 97.4 F L Pulse Rate 84 77 Respiratory Rate 18 Blood Pressure 119/73 Pulse Oximetry 95 Oxygen Delivery Room Air Fraction of Inspired Oxygen 09/07/22 04:00 09/07/22 06:00 0
[2022-09-07 16:22] LABS: Partial Thromboplastin Time 62.3 SECONDS (22.3-36.8)
[2022-09-07] MEDS: HEPARIN SODIUM 5,000 UNITS/ML VIAL 2500 UNITS IV PUSH (18:01)
[2022-09-07] MEDS: HEPARIN SOD/D5W 100 UNITS/ML 25,000 UNITS/250 ML BAG 12 UNITS IV CONT (18:07)
--- NOTE | 2022-09-07 19:54 | PC.NURSE ---
Pt denies any pain at this time. Pt expresses no needs. Pt continues to receive heparin therapy until 2100 tonight. Pt educated on change in medication. Pt tolerating well. Pt nervous to discharge due to coughing up blood before coming. Pt continues to be monitored for any changes in status.
[2022-09-07] MEDS: traZODone HCL 50 MG TABLET 100 MG PO (21:35)
[2022-09-07] MEDS: OLANZapine 2.5 MG TABLET PO (21:35)
[2022-09-07] MEDS: OLANZapine 5 MG TABLET PO (21:35)
[2022-09-07] MEDS: APIXABAN 5 MG TABLET 10 MG PO (21:35)
[2022-09-08] VITALS: PULSE 84
[2022-09-08 06:00] VITALS: BP 131/63; PULSE 94; RESP 18; TEMP 36.3; O2SAT 93
[2022-09-08 07:28] LABS: Basophils Absolute Auto 0.1 K/mm3 (0.0-0.1); Basophils Percent Auto 1.3 % (0.2-1.2); Eosinophils Absolute Auto 0.1 K/mm3 (0-0.3); Eosinophils Percent Auto 1.6 % (0-4.4); Hematocrit 40.5 % (37.0-47.0); Hemoglobin 12.9 g/dL (12.0-15.0); Immature Granulocyte Absolute 0.02 K/mm3 (0.00-0.031); Immature Granulocyte Percent A 0.3 % (0-0.5); Lymphocytes Absolute Auto 1.63 K/mm3 (0.9-3.2); Lymphocytes Percent Auto 25.8 % (18.3-44.2); Mean Corpuscular HGB Conc 31.9 g/dl (32-36); Mean Corpuscular Hemoglobin 30.1 pg (26-34); Mean Corpuscular Volume 94.4 fl (80-100); Mean Platelet Volume 10.8 fl (7.4-10.4); Monocytes Absolute Auto 0.6 K/mm3 (0.1-0.6); Neutrophils Absolute Auto 3.9 K/mm3 (1.3-6.7); Platelet Count Result 210 k/mm3 (150-375); Red Blood Count 4.29 M/mm3 (4.2-5.4); Red Cell Distribution Width 15.3 % (11.5-14.5); White Blood Count 6.3 K/mm3 (4.5-10.0)
[2022-09-08 07:40] LABS: Alanine Aminotransferase 42 U/L (6-35); Albumin Level 4.2 g/dL (3.5-5.1); Alkaline Phosphatase 71 U/L (38-126); Anion Gap 2 mmol/L (8-16); Aspartate Amino Transferase 52 U/L (14-36); Bilirubin,Total 0.5 mg/dL (0.2-1.3); Blood Urea Nitrogen 10 mg/dL (7-17); Calcium 9.3 mg/dL (8.4-10.2); Carbon Dioxide 30 mmol/L (22-30); Chloride 102 mmol/L (98-107); Estimated CRCL calculation 54 ml/min; Estimated Glomerular Filt Rate > 60; Glucose 90 mg/dL (65-110); Potassium 4.3 mmol/L (3.4-5.0); Sodium 134 mmol/L (137-145)
[2022-09-08 07:44] VITALS: PULSE 90; RESP 18; O2SAT 95
[2022-09-08] MEDS: FLUTICASONE/SALMETEROL 45-21 MCG INHALER 1 PUFF 2 PUFF INHALATION (07:44)
[2022-09-08] MEDS: LORATADINE 10 MG TABLET PO (09:10)
[2022-09-08] MEDS: FUROSEMIDE 20 MG TABLET PO (09:10)
[2022-09-08] MEDS: LOSARTAN POTASSIUM 100 MG TABLET PO (09:10)
[2022-09-08] MEDS: traMADol HCL (*CRX) 50 MG TABLET PO (09:10)
[2022-09-08] MEDS: PANTOPRAZOLE 40 MG TABLET PO (09:10)
[2022-09-08] MEDS: APIXABAN 5 MG TABLET 10 MG PO (09:10)
[2022-09-08] MEDS: dilTIAZem HCL CD 240 MG CAP.24HR PO (09:11)
[2022-09-08 14:00] VITALS: BP 157/68; PULSE 92; RESP 18; TEMP 36.8; O2SAT 94
--- NOTE | 2022-09-08 15:04 | PM.DS ---
DS: Admitting Diagnosis Discharge Date 09/08/2022 Admitting Diagnosis Shortness of breath DS: Discharge Diagnosis Discharge Diagnosis (1) Pulmonary embolism: Qualifiers: Acute cor pulmonale presence: unspecified Chronicity: acute Pulmonary embolism type: other Qualified Code(s): I26.99 - Other pulmonary embolism without acute cor pulmonale Code(s): I26.99 - Other pulmonary embolism without acute cor pulmonale Status: Acute (2) Hypokalemia: Code(s): E87.6 - Hypokalemia Status: Acute (3) Supraventricular tachycardia: Code(s): I47.1 - Supraventricular tachycardia Status: Acute (4) Chronic obstructive pulmonary disease: Qualifiers: COPD type: unspecified COPD Qualified Code(s): J44.9 - Chronic obstructive pulmonary disease, unspecified Code(s): J44.9 - Chronic obstructive pulmonary disease, unspecified Status: Acute (5) Hypertension: Qualifiers: Hypertension type: unspecified Qualified Code(s): I10 - Essential (primary) hypertension Code(s): I10 - Essential (primary) hypertension Status: Acute (6) Insomnia: Code(s): G47.00 - Insomnia, unspecified Status: Acute DS: Summary Hospital Course Hospital Course: the patient is a 77-year-old female with history of SVT and PE in the past recently had an ablation done was placed on Cardizem for this PT. Came in with shortness of breath and hemoptysis and mild chest pain. ED evaluation revealed clear lungs without focal consolidation or pleural effusion. Cardia mediastinal cell out E with his stable bones and soft tissue are unremarkable. Chest CT was done which showed mild subsegmental right lower lobe pulmonary embolism. She was started on IV heparin. She stated that many years ago? she did have a pulmonary embolus.? Venous duplex negative.? Echo reviewed.? The patient stated that she has been more labile in sedentary lifestyle.? She also stated she recently had a procedure with the cardiac ablation.? On heparin drip was switched to Eliquis during the hospital stay. She remained stable and improved without needing any oxygen or hypotension. She will be discharged on Eliquis which he is under her formulary as well. Time Spent with Patient Time attestation: Total time spent providing and/or coordinating discharge services: 35 minutes Exam Narrative: GENERAL: Well-developed, well-nourished, and in no acute distress. HEAD: Normocephalic, atraumatic. EYES: PERRLA and EOMI. ENT: Nares clear, no rhinorrhea or epistaxis.? Mucous membranes dry. CHEST: No respiratory distress.? No wheezes rales or rhonchi HEART: Regular rate regular rhythm.? No murmur heard.? Normal peripheral pulses. ABDOMEN: Soft, nontender, nondistended, normal active bowel sounds. EXTREMITIES: Normal range of motion.? No edema. SKIN: Warm, dry, no rash. NEURO: No focal deficits.? Alert and oriented x3. PSYCH: Normal mood and affect. DS: Data Data Completed and Pending Completed studies during hospitalization: Exam Type: ? ? CA echo doppler color flow Study Info Indications ?? ? - PULM EMBOISM Complete two-dimensional, color flow and Doppler transthoracic echocardiogram is performed. Account #: ? ? [id number] Summary ? 1. Complete two-dimensional, color flow and Doppler transthoracic echocardiogram is performed. ? 2. Normal left ventricular size thickness and hyperdynamic systolic function. ? 3. No evidence of right-sided pressure overload. ? 4. Small amount of tricuspid insufficiency velocities are consistent RV systolic pressure of 34 mmHg. Left Ventricle ? Left ventricular chamber dimension is normal. ? Left ventricular systolic function is hyperdynamic, estimated at >70%. ? The left ventricular diastolic function is grade I diastolic dysfunction. Right Ventricle ? Right ventricular chamber dimension is normal. Left Atria ? Left atrial chamber dimension is normal.
--- NOTE | 2022-09-08 19:40 | PC.NURSE ---
Pt was switched from heparin drip to eliquis last night. Pt has tolerated well. Pt was educated on new medication and was sent home with written instructions. Pt IV was removed tip intact. Pt tolerated well. Pt denies any needs at this time. Pt discharged with daughter. Pt was wheeled to car. Pt was monitored for any changes in status while here. Pt reports that she is very happy with her care here.
== END 2022-09-08 17:40 | disposition home or self-care (01) | DRG 176 ==
LOC: ANHED 11:01 → ANH3MEDSUR 12:06
PROVIDERS: Internal Medicine; Nurse Practitioner; Admitting Provider Student in an Organized Health Care Education/Training Program; Emergency Provider Preventive Medicine Aerospace Medicine; Visit Provider Internal Medicine
DX: I26.99 Other pulmonary embolism without acute cor pulmonale (principal); I47.1 Supraventricular tachycardia; E87.6 Hypokalemia; J44.9 Chronic obstructive pulmonary disease, unspecified; I10 Essential (primary) hypertension; K21.9 Gastro-esophageal reflux disease without esophagitis; M19.90 Unspecified osteoarthritis, unspecified site; F32.A Depression, unspecified; F41.9 Anxiety disorder, unspecified; Z86.711 Personal history of pulmonary embolism; Z87.891 Personal history of nicotine dependence
CPT/HCPCS: 36415; 71045; 71275; 80048; 80053; 83735; 83880; 84484; 85014; 85018; 85025; 85610; 85730; 93005; 93306; 93970; 94640; 96365; 96374; 99285; A9270; G0378; J1644; J7030; Q9957; Q9967

== ENCOUNTER 2022-09-10 08:54 | Emergency (ER) | payer MEDICARE, MEDICAID, SELFPAY ==
[2022-09-10] VITALS (10 sets, daily range): BP systolic 145–162; BP diastolic 65–117; PULSE 103–123; RESP 18–25; TEMP 36.6; O2SAT 94–98
--- NOTE | ~2022-09-10 | XR_ITS ---
EXAMINATION: XR chest 2V DATE: 09/10/2022 09:30 INDICATION: Hemoptysis. TECHNIQUE: Frontal and lateral views of the chest were obtained. COMPARISON: Chest single view 09/05/2022, chest CT 09/05/2022 FINDINGS: There is no pneumonia, pleural effusion, or pneumothorax. Cardiomegaly is noted. IMPRESSION: 1. Cardiomegaly. Reviewed, dictated and finalized at location B. IMPRESSION: 1. Cardiomegaly.
--- NOTE | 2022-09-10 09:02 | ED.GENADULT ---
HPI - General Adult General Chief complaint: Unspecified Stated complaint: Coughing up blood Time Seen by Provider: 09/10/22 09:02 History of Present Illness HPI narrative: Cady is a 77-year-old female with a past history of a PE currently anticoagulated on Eliquis and history of COPD who presents to the emergency room with acute onset of hemoptysis. Patient states this morning she pulled her dentures out to brush them and noticed scant amount of blood in her mouth. States several moments later she coughed up bright red blood. Patient denies any increasing or worsening shortness of breath or chest pain. Related Data Home Medications Medication Instructions Recorded Confirmed albuterol sulfate 90 mcg/actuation 90 mcg inhalation Q4-6H PRN 02/12/21 09/05/22 aerosol inhaler shortness of breath budesonide-formoterol HFA 80 2 inh inhalation BID 02/12/21 09/06/22 mcg-4.5 mcg/actuation aerosol inhaler fluticasone propionate 50 2 spray intranasal BID PRN 02/12/21 09/05/22 mcg/actuation nasal Shortness Of Breath Or Wheezing spray,suspension losartan 100 1 tablet PO DAILY 02/12/21 09/05/22 mg-hydrochlorothiazide 25 mg tablet olanzapine 7.5 mg tablet 7.5 mg PO HS 02/12/21 09/05/22 trazodone 100 mg tablet 100 mg PO HS 02/12/21 09/05/22 esomeprazole magnesium 40 mg 40 mg PO DAILY 09/05/22 09/05/22 capsule,delayed release furosemide 20 mg tablet 20 mg PO DAILY 09/05/22 09/05/22 tramadol 50 mg tablet 50 mg PO BID PRN Migraine Headache 09/05/22 09/05/22 acetaminophen 500 mg tablet 1,000 mg PO BID PRN pain 09/06/22 loratadine 10 mg tablet (Allergy 10 mg PO DAILY 09/06/22 09/06/22 Relief (loratadine)) Allergies Allergy/AdvReac Type Severity Reaction Status Date / Time aspirin Allergy Rash Verified 09/10/22 09:08 codeine Allergy Rash Verified 09/10/22 09:08 erythromycin base Allergy Itching Verified 09/10/22 09:08 propoxyphene [From Darvon] Allergy Rash Verified 09/10/22 09:08 Review of Systems Review of Systems: CONSTITUTIONAL: Denies fever, chills, or sweats. EYES: Denies visual changes, redness, or discharge. ENT: Denies rhinorrhea, congestion, sore throat, or otalgia. CARDIOVASCULAR: Denies chest pain, palpitations, or edema. RESPIRATORY: Reports cough. GASTROINTESTINAL: Denies abdominal pain, nausea, vomiting, or diarrhea. GENITOURINARY: Denies dysuria or hematuria. SKIN: Denies rash or itching. MUSCULOSKELETAL: Denies back pain, joint pain, or myalgia. NEUROLOGIC: Denies headache, numbness, dizziness, or weakness. PSYCHIATRIC: Denies anxiety or depression. [facility] Past Medical History Medical History Anxiety and depression Arthritis Chronic obstructive pulmonary disease Degenerative disc disease Gastroesophageal reflux disease History of GI bleed Hypertension Insomnia Pulmonary embolism Surgical History Surgical History H/O cardiac radiofrequency ablation History of appendectomy History of cataract extraction History of colonoscopy with polypectomy Family History Family History Father Acute myocardial infarction Diabetes mellitus Mother Chronic obstructive pulmonary disease Social History Social History Social History: The patient had 6 children and 1 son of cancer. She is retired from [employer] in [place] in [place]. She is and lives home alone. surrogate decision maker: Rizwana Yeung or Ashlyn Orr, daughters. Former smoker. Code status: Full code. Smoking packs per day: 2 Smoking cigarettes per day: 40.0 Years smoked: 50 Smoking pack-years: 100.00 Smoking status: Former smoker Tobacco type: cigarettes Second hand tobacco smoke exposure: Yes Alcohol intake: current Drinks per week: 1 Alcohol use details: 1
--- NOTE | 2022-09-10 09:09 | ECG_ITS ---
Measurements Intervals [place] Rate: 109 P: 48 NV: 182 QRS: 9 QRSD: 72 T: 21 QT: 304 QTc: 410 Interpretive Statements SINUS TACHYCARDIA WITH OCCASIONAL SUPRAVENTRICULAR PREMATURE COMPLEXES ABNORMAL RHYTHM ECG COMPARED TO ECG 09/05/2022 07:23:14 NO SIGNIFICANT CHANGES Electronically Signed On 09-10-2022 19:32:21 CDT by Caroline Tejada M.D.
[2022-09-10 09:30] LABS: Basophils Absolute Auto 0.1 K/mm3 (0.0-0.1); Eosinophils Absolute Auto 0.1 K/mm3 (0-0.3); Eosinophils Percent Auto 1.6 % (0-4.4); Hematocrit 41.2 % (37.0-47.0); Hemoglobin 13.4 g/dL (12.0-15.0); Immature Granulocyte Absolute 0.02 K/mm3 (0.00-0.031); Immature Granulocyte Percent A 0.2 % (0-0.5); Lymphocytes Percent Auto 26.3 % (18.3-44.2); Mean Corpuscular HGB Conc 32.5 g/dl (32-36); Mean Corpuscular Hemoglobin 30.4 pg (26-34); Mean Corpuscular Volume 93.4 fl (80-100); Mean Platelet Volume 10.5 fl (7.4-10.4); Monocytes Absolute Auto 0.8 K/mm3 (0.1-0.6); Monocytes Percent Auto 9.1 % (2.6-8.5); Neutrophils Absolute Auto 5.2 K/mm3 (1.3-6.7); Neutrophils Percent Auto 61.8 % (45.5-73.1); Platelet Count Result 209 k/mm3 (150-375); Red Blood Count 4.41 M/mm3 (4.2-5.4); Red Cell Distribution Width 14.8 % (11.5-14.5); White Blood Count 8.4 K/mm3 (4.5-10.0)
[2022-09-10 09:41] LABS: INR 1.1; Partial Thromboplastin Time 29.4 SECONDS (22.3-36.8); Prothrombin Time 14.5 Seconds (11.1-14.7)
[2022-09-10 09:42] LABS: Alanine Aminotransferase 86 U/L (6-35); Albumin Level 4.4 g/dL (3.5-5.1); Alkaline Phosphatase 84 U/L (38-126); Anion Gap 7 mmol/L (8-16); Aspartate Amino Transferase 66 U/L (14-36); Bilirubin,Total 0.4 mg/dL (0.2-1.3); Blood Urea Nitrogen 14 mg/dL (7-17); Calcium 9.3 mg/dL (8.4-10.2); Carbon Dioxide 29 mmol/L (22-30); Chloride 100 mmol/L (98-107); Estimated CRCL calculation 43 ml/min; Estimated Glomerular Filt Rate 54; Glucose 103 mg/dL (65-110); Potassium 4.2 mmol/L (3.4-5.0); Sodium 136 mmol/L (137-145)
[2022-09-10 09:51] LABS: NT Pro B Type Natriuretic Pept 66 pg/mL (19.9-100); Troponin I < 0.012 ng/mL (0.000-0.034)
== END 2022-09-10 10:21 | disposition home or self-care (01) ==
PROVIDERS: Emergency Provider Nurse Practitioner Family
DX: R04.2 Hemoptysis (principal); F41.9 Anxiety disorder, unspecified; F32.A Depression, unspecified; M19.90 Unspecified osteoarthritis, unspecified site; K21.9 Gastro-esophageal reflux disease without esophagitis; I10 Essential (primary) hypertension; R06.02 Shortness of breath
CPT/HCPCS: 36415; 71046; 80053; 83880; 84484; 85025; 85610; 85730; 93005; 99284

== ENCOUNTER 2023-03-13 09:26 | Inpatient (IN) | payer MEDICARE, MEDICAID, SELFPAY ==
[2023-03-13] VITALS (20 sets, daily range): BP systolic 145–180; BP diastolic 72–98; PULSE 72–90; RESP 14–25; TEMP 36.4–36.6; O2SAT 93–100
--- NOTE | ~2023-03-13 | XR_ITS ---
EXAMINATION: XR chest 2V DATE: 03/13/2023 10:21 INDICATION: Shortness of breath. Productive cough. TECHNIQUE: Frontal and lateral views of the chest were obtained. COMPARISON: Chest 2 views 09/10/2022, chest CT 09/05/2022 FINDINGS: There is mild atelectasis at right lung base. No pleural effusion or pneumothorax. Cardiome mei is noted. IMPRESSION: 1. Mild atelectasis at right lung base. 2. Cardiomegaly. Reviewed, dictated and finalized at location A. MOLDER
--- NOTE | 2023-03-13 09:31 | ECG_ITS ---
Measurements Intervals [place] Rate: 75 P: 50 RI: 185 QRS: 25 QRSD: 77 T: 48 QT: 368 QTc: 413 Interpretive Statements SINUS RHYTHM WITH OCCASIONAL SUPRAVENTRICULAR PREMATURE COMPLEXES LOW QRS VOLTAGE IN PRECORDIAL LEADS [QRS DEFLECTION < 1.0 mV IN CHEST LEADS] BORDERLINE ECG COMPARED TO ECG 09/10/2022 09:22:29 NO DIFFERENCE Electronically Signed On 03-13-2023 13:51:46 [employer] by Roel Mcintyre M.D.
[2023-03-13 10:08] LABS: Basophils Absolute Auto 0.1 K/mm3 (0.0-0.1); Basophils Percent Auto 0.8 % (0.2-1.2); Eosinophils Absolute Auto 0.1 K/mm3 (0-0.3); Eosinophils Percent Auto 1.4 % (0-4.4); Hematocrit 39.9 % (37.0-47.0); Hemoglobin 12.8 g/dL (12.0-15.0); Immature Granulocyte Absolute 0.02 K/mm3 (0.00-0.031); Immature Granulocyte Percent A 0.2 % (0-0.5); Lymphocytes Absolute Auto 1.32 K/mm3 (0.9-3.2); Lymphocytes Percent Auto 15.6 % (18.3-44.2); Mean Corpuscular HGB Conc 32.1 g/dl (32-36); Mean Corpuscular Hemoglobin 30.6 pg (26-34); Mean Corpuscular Volume 95.5 fl (80-100); Mean Platelet Volume 10.7 fl (7.4-10.4); Monocytes Absolute Auto 0.6 K/mm3 (0.1-0.6); Monocytes Percent Auto 6.6 % (2.6-8.5); Neutrophils Absolute Auto 6.4 K/mm3 (1.3-6.7); Neutrophils Percent Auto 75.4 % (45.5-73.1); Platelet Count Result 196 k/mm3 (150-375); Red Blood Count 4.18 M/mm3 (4.2-5.4); Red Cell Distribution Width 13.4 % (11.5-14.5); White Blood Count 8.5 K/mm3 (4.5-10.0)
[2023-03-13 10:19] LABS: Alanine Aminotransferase 15 U/L (6-35); Albumin Level 4.3 g/dL (3.5-5.1); Alkaline Phosphatase 79 U/L (38-126); Anion Gap 3 mmol/L (8-16); Aspartate Amino Transferase 22 U/L (14-36); Bilirubin,Total 0.6 mg/dL (0.2-1.3); Blood Urea Nitrogen 18 mg/dL (7-17); Calcium 9.4 mg/dL (8.4-10.2); Carbon Dioxide 35 mmol/L (22-30); Chloride 100 mmol/L (98-107); Estimated CRCL calculation 47 ml/min; Estimated Glomerular Filt Rate > 60; Glucose 102 mg/dL (65-110); Potassium 3.9 mmol/L (3.4-5.0); Sodium 138 mmol/L (137-145)
[2023-03-13 10:46] LABS: Influenza A QL RT-PCR Negative (Negative); Influenza B QL RT-PCR Negative (Negative); RSV RNA, RT-PCR Negative (Negative); SARS-CoV-2 RNA PCR Negative (Negative)
--- NOTE | 2023-03-13 12:24 | ED.SOB ---
HPI - SOB/Dyspnea General Chief Complaint: Shortness of Breath/Dyspnea Stated Complaint: wheezing, SOB, productive cough Time Seen by Provider: 03/13/23 12:23 History of Present Illness HPI Narrative: 77 YEARS OLD WHITE FEMALE DROVE HERSELF TO THE EMERGENCY ROOM COMPLAINING OF SHORTNESS OF BREATH, COUGHING, WHEEZING, CHEST TIGHTNESS FOR THE LAST 1 AND HALF WEEKS, BEEN TREATED WITH ANTIBIOTIC WITHOUT ANY IMPROVEMENT. PATIENT REPORT MORE SHORTNESS OF BREATH ON EXERTION LATELY, SWELLING LEGS, WORKUP IN THE MIDDLE OF THE NIGHT WITH SHORTNESS OF BREATH GET BETTER AFTER SITTING FOR A WHILE. HISTORY OF HYPERTENSION COPD, NOT ON ANTI-PLATELET OR ANTICOAGULANT MEDICATION. Related Data Home Medications Medication Instructions Recorded Confirmed albuterol sulfate 90 mcg/actuation 90 mcg inhalation Q4-6H PRN 02/12/21 09/05/22 aerosol inhaler shortness of breath budesonide-formoterol HFA 80 2 inh inhalation BID 02/12/21 09/06/22 mcg-4.5 mcg/actuation aerosol inhaler fluticasone propionate 50 2 spray intranasal BID PRN 02/12/21 09/05/22 mcg/actuation nasal Shortness Of Breath Or Wheezing spray,suspension losartan 100 1 tablet PO DAILY 02/12/21 09/05/22 mg-hydrochlorothiazide 25 mg tablet olanzapine 7.5 mg tablet 7.5 mg PO HS 02/12/21 09/05/22 trazodone 100 mg tablet 100 mg PO HS 02/12/21 09/05/22 esomeprazole magnesium 40 mg 40 mg PO DAILY 09/05/22 09/05/22 capsule,delayed release furosemide 20 mg tablet 20 mg PO DAILY 09/05/22 09/05/22 tramadol 50 mg tablet 50 mg PO BID PRN Migraine Headache 09/05/22 09/05/22 acetaminophen 500 mg tablet 1,000 mg PO BID PRN pain 09/06/22 loratadine 10 mg tablet (Allergy 10 mg PO DAILY 09/06/22 09/06/22 Relief (loratadine)) Allergies Allergy/AdvReac Type Severity Reaction Status Date / Time aspirin Allergy Rash Verified 09/10/22 09:08 codeine Allergy Rash Verified 09/10/22 09:08 erythromycin base Allergy Itching Verified 09/10/22 09:08 propoxyphene [From Darvon] Allergy Rash Verified 09/10/22 09:08 Review of Systems Review of Systems: All systems reviewed & are unremarkable except as noted in HPI and below PMFSH Past Medical History Medical History Anxiety and depression Arthritis Chronic obstructive pulmonary disease Degenerative disc disease Gastroesophageal reflux disease History of GI bleed Hypertension Insomnia Pulmonary embolism Surgical History Surgical History H/O cardiac radiofrequency ablation History of appendectomy History of cataract extraction History of colonoscopy with polypectomy Family History Family History Father Acute myocardial infarction Diabetes mellitus Mother Chronic obstructive pulmonary disease Social History Social History Social History: The patient had 6 children and 1 son of cancer. 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 She is and lives home alone. surrogate decision maker: Rizwana Yeung or Ashlyn Orr, daughters. Former smoker. Code status: Full code. Smoking packs per day: 2 Smoking cigarettes per day: 40.0 Years smoked: 50 Smoking pack-years: 100.00 Smoking status: Former smoker Tobacco type: cigarettes Second hand tobacco smoke exposure: Yes Alcohol intake: current Drinks per week: 1 Alcohol use details: 1 drink every 3 months. Substance use: never Substance use type: marijuana Lack of Transportation: No Lack of Food: Never True Current Housing: I Have Housing Concerned About Future Housing: No Difficulty Paying Gas/Electric Bills: No Difficulty Paying for Meds: No Currently Unemployed: No Education: Decline to Answer Difficulty w/ Childcare or Family Care: No Living arrangements: with family Spiritual care concerns: No
[2023-03-13] MEDS: IPRATROPIUM 0.5 MG/ALBUTEROL SULFATE 2.5 MG AMPUL.NEB 3 ML INHALATION ×3 (12:54→12:55)
[2023-03-13 13:01] LABS: NT Pro B Type Natriuretic Pept 1080 pg/mL (19.9-100); Troponin I < 0.012 ng/mL (0.000-0.034)
[2023-03-13 13:09] LABS: Alveolar/Arterial O2 Gradient 25.2 mmHg; Base Excess ABG 5.4 mEq/l (+/-2.0); Device ROOM AIR; Fractional Inspired Oxygen 21 %; HCO3 ABG 30.5 mEq/l (22.0-26.0); Oxygen Content ABG 17.5 %vol (16.0-22.0); Oxygen Saturation ABG 94.2 % (95.0-100.0); Oxyhemoglobin 92.7 % THb (90.0-100.0); PCO2 ABG 46.4 mmHg (35.0-45.0); PO2 FiO2 Ratio Arterial Blood 3.29 %; Site Drawn LEFT BRACHIAL; Total Hemoglobin 13.4 g/dL (12.0-18.0); pH ABG 7.435 (7.350-7.450)
[2023-03-13] MEDS: methylPREDNISolone SOD SUCC 125 MG VIAL IV PUSH (13:13)
[2023-03-13] MEDS: FUROSEMIDE INJ 40 MG/4 ML VIAL IV PUSH (15:14)
--- NOTE | 2023-03-13 17:55 | ADMGEN ---
This patient, Cady Brooks, was admitted to Medical Room 348-01. Patient/family oriented to hospital policies and general routines including ID bracelet, bed and alarms, visiting hours, pain management, procedures, bathroom and other care routines, personal items, smoking policy, room service/diet, and visiting hours. Information on how to activate the Rapid Response Team has been discussed. Patient/Family are encouraged to report perceived risks to care and to ask questions if they do not understand what they are told or what they should do.
[2023-03-13] MEDS: methylPREDNISolone SOD SUCC 125 MG VIAL 60 MG IV PUSH (18:25)
[2023-03-13] MEDS: ALBUTEROL SULFATE NEB 2.5 MG/3 ML INH INHALATION (20:35)
[2023-03-13] MEDS: IPRATROPIUM BR 0.02% INH SOLN 0.5 MG/2.5 ML VIAL INHALATION (20:35)
[2023-03-13] MEDS: FUROSEMIDE INJ 40 MG/4 ML VIAL 20 MG IV PUSH (21:41)
[2023-03-14] VITALS (20 sets, daily range): BP systolic 113–152; BP diastolic 65–87; PULSE 71–97; RESP 16–20; TEMP 36.4–37.6; O2SAT 92–99
[2023-03-14] MEDS: methylPREDNISolone SOD SUCC 125 MG VIAL 60 MG IV PUSH ×4 (00:38→18:38)
[2023-03-14] MEDS: IPRATROPIUM BR 0.02% INH SOLN 0.5 MG/2.5 ML VIAL INHALATION (02:45)
[2023-03-14] MEDS: ALBUTEROL SULFATE NEB 2.5 MG/3 ML INH INHALATION (02:45)
[2023-03-14] MEDS: IPRATROPIUM 0.5 MG/ALBUTEROL SULFATE 2.5 MG AMPUL.NEB 3 ML INHALATION ×3 (07:41→20:54)
[2023-03-14] MEDS: PROPRANOLOL HCL 60 MG CAPSULE CR 120 MG PO (08:45)
[2023-03-14] MEDS: ACETAMINOPHEN 500 MG TABLET 1000 MG PO (08:46)
[2023-03-14] MEDS: LOSARTAN POTASSIUM 100 MG TABLET PO (08:46)
[2023-03-14] MEDS: dilTIAZem HCL CD 240 MG CAP.24HR PO (08:46)
[2023-03-14] MEDS: hydroCHLOROthiazide 25 MG TABLET PO (08:47)
[2023-03-14] MEDS: LORATADINE 10 MG TABLET 20 MG PO (08:47)
[2023-03-14] MEDS: traMADol HCL (*CRX) 50 MG TABLET PO (08:47)
[2023-03-14] MEDS: PANTOPRAZOLE 40 MG TABLET PO (08:47)
[2023-03-14] MEDS: FUROSEMIDE INJ 40 MG/4 ML VIAL 20 MG IV PUSH ×2 (08:50→20:54)
[2023-03-14 09:12] LABS: Basophils Percent Auto 0.1 % (0.2-1.2); Hematocrit 41.4 % (37.0-47.0); Hemoglobin 13.9 g/dL (12.0-15.0); Immature Granulocyte Absolute 0.04 K/mm3 (0.00-0.031); Immature Granulocyte Percent A 0.4 % (0-0.5); Lymphocytes Absolute Auto 0.91 K/mm3 (0.9-3.2); Mean Corpuscular HGB Conc 33.6 g/dl (32-36); Mean Corpuscular Hemoglobin 30.8 pg (26-34); Mean Corpuscular Volume 91.6 fl (80-100); Mean Platelet Volume 10.7 fl (7.4-10.4); Monocytes Absolute Auto 0.2 K/mm3 (0.1-0.6); Monocytes Percent Auto 1.8 % (2.6-8.5); Neutrophils Absolute Auto 10.3 K/mm3 (1.3-6.7); Neutrophils Percent Auto 89.7 % (45.5-73.1); Platelet Count Result 236 k/mm3 (150-375); Red Blood Count 4.52 M/mm3 (4.2-5.4); Red Cell Distribution Width 13.2 % (11.5-14.5); White Blood Count 11.4 K/mm3 (4.5-10.0)
[2023-03-14 09:25] LABS: Alanine Aminotransferase 20 U/L (6-35); Albumin Level 4.5 g/dL (3.5-5.1); Alkaline Phosphatase 88 U/L (38-126); Anion Gap 9 mmol/L (8-16); Aspartate Amino Transferase 27 U/L (14-36); Bilirubin,Total 0.5 mg/dL (0.2-1.3); Blood Urea Nitrogen 21 mg/dL (7-17); Calcium 9.8 mg/dL (8.4-10.2); Carbon Dioxide 33 mmol/L (22-30); Chloride 93 mmol/L (98-107); Estimated CRCL calculation 47 ml/min; Estimated Glomerular Filt Rate > 60; Glucose 154 mg/dL (65-110); Potassium 3.2 mmol/L (3.4-5.0); Sodium 135 mmol/L (137-145)
[2023-03-14] MEDS: guaiFENesin 12 HR 600 MG TABCR PO ×2 (11:02→20:54)
--- NOTE | 2023-03-14 11:16 | PM.IMHP ---
H&P: HPI History of Present Illness Date/Time: 03/14/23 11:16 Chief Complaint: Shortness of breath Narrative: This is a 77-year-old female with a past medical history of COPD, hypertension, GERD, AFib post ablation, essential tremors, SVT, history of PE the present to the hospital on 03/13/23 with chief complaint of shortness of breath. Patient states that she has had a productive cough and worsening shortness of breath for approximately 2 weeks. She also mentions that her ankles had increased swelling and she was short of breath with lying down flat. She had been on antibiotics as an outpatient because she thought she had pneumonia. She has been producing a green-yellow sputum. She has been taking her nebulizers at home. She was taking Mucinex and states that this did help with her cough. Patient was found to have a normal white blood cell count, and stated respiratory acidosis, elevated serum CO2 and a BNP of 1080. Patient admitted to the floor for treatment of COPD exacerbation and CHF exacerbation. [facility] Past Medical History Medical History (Updated 03/14/23 @ 11:28 by Dilia Oliva PA-C) Anxiety and depression Arthritis Chronic obstructive pulmonary disease Degenerative disc disease Gastroesophageal reflux disease History of GI bleed Hypertension Insomnia Pulmonary embolism SVT (supraventricular tachycardia) Surgical History Surgical History H/O cardiac radiofrequency ablation History of appendectomy History of cataract extraction History of colonoscopy with polypectomy Family History Family History Father Acute myocardial infarction Diabetes mellitus Mother Chronic obstructive pulmonary disease Social History Social History Social History: The patient had 6 children and 1 son of cancer. 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 surrogate decision maker: Rizwana Yeung or Ashlyn Orr, daughters. Former smoker. Code status: Full code. Smoking packs per day: 2 Smoking cigarettes per day: 40.0 Years smoked: 50 Smoking pack-years: 100.00 Smoking status: Former smoker Second hand tobacco smoke exposure: Yes Alcohol intake: current Drinks per week: 1 Alcohol use details: 1 drink every 3 months. Substance use: never Substance use type: marijuana Do You Feel Safe in your Home?: Yes Lack of Transportation: No Lack of Food: Never True Current Housing: I Have Housing Concerned About Future Housing: No Difficulty Paying Gas/Electric Bills: No Difficulty Paying for Meds: No Currently Unemployed: No Education: Grade School Difficulty w/ Childcare or Family Care: No Living arrangements: with family Spiritual care concerns: No Meds Home Medications and Allergies Home Medications Medication Instructions Recorded Confirmed Type albuterol sulfate 90 mcg/actuation 90 mcg inhalation Q4-6H PRN 02/12/21 03/13/23 History aerosol inhaler shortness of breath budesonide-formoterol HFA 80 2 inh inhalation BID 02/12/21 03/13/23 History mcg-4.5 mcg/actuation aerosol inhaler losartan 100 1 tablet PO DAILY 02/12/21 03/13/23 History mg-hydrochlorothiazide 25 mg tablet olanzapine 7.5 mg tablet 15 mg PO HS 02/12/21 03/13/23 History trazodone 100 mg tablet 150 mg PO HS 02/12/21 03/13/23 History diltiazem HCl 240 mg 240 mg PO DAILY 30 days #30 caps 05/17/22 03/13/23 Rx capsule,extended release 24 hr (Cardizem CD) esomeprazole magnesium 40 mg 40 mg PO DAILY 09/05/22 03/13/23 History capsule,delayed release acetaminophen 500 mg tablet 1,000 mg PO DAILY 09/06/22 03/13/23 History loratadine 10 mg tablet (Allergy 20 mg PO DAILY 09/06/22 03/13/23 History Relief (loratadine)) furosemide 20 mg tablet 20 mg PO DAILY PRN
[2023-03-14] MEDS: POTASSIUM CHLORIDE 20 MEQ ER TABLET 40 MEQ PO (12:59)
[2023-03-14] MEDS: AZITHROMYCIN 250 MG TABLET 500 MG PO (12:59)
--- NOTE | 2023-03-14 19:00 | PC.NURSE ---
On 03/14/23, the student, Elsa Piper, provided care and completed [facility] documentation on this patient. I have reviewed the student's documentation and agree with the findings.
[2023-03-14] MEDS: traZODone HCL 50 MG TABLET 150 MG PO (20:52)
[2023-03-14] MEDS: OLANZapine 5 MG TABLET 15 MG PO (20:53)
[2023-03-15] VITALS (15 sets, daily range): BP systolic 103–134; BP diastolic 48–68; PULSE 64–84; RESP 16–20; TEMP 36.6–37.2; O2SAT 92–96
[2023-03-15] MEDS: methylPREDNISolone SOD SUCC 125 MG VIAL 60 MG IV PUSH ×5 (00:08→23:37)
[2023-03-15] MEDS: IPRATROPIUM 0.5 MG/ALBUTEROL SULFATE 2.5 MG AMPUL.NEB 3 ML INHALATION ×4 (02:28→21:06)
[2023-03-15 06:19] LABS: Hematocrit 39.5 % (37.0-47.0); Hemoglobin 13.1 g/dL (12.0-15.0); Mean Corpuscular HGB Conc 33.2 g/dl (32-36); Mean Corpuscular Hemoglobin 30.6 pg (26-34); Mean Corpuscular Volume 92.3 fl (80-100); Mean Platelet Volume 11.2 fl (7.4-10.4); Platelet Count Result 232 k/mm3 (150-375); Red Blood Count 4.28 M/mm3 (4.2-5.4); Red Cell Distribution Width 13.4 % (11.5-14.5); White Blood Count 16.8 K/mm3 (4.5-10.0)
[2023-03-15 06:32] LABS: Alanine Aminotransferase 19 U/L (6-35); Albumin Level 4.4 g/dL (3.5-5.1); Alkaline Phosphatase 75 U/L (38-126); Anion Gap 9 mmol/L (8-16); Aspartate Amino Transferase 22 U/L (14-36); Bilirubin,Total 0.5 mg/dL (0.2-1.3); Blood Urea Nitrogen 25 mg/dL (7-17); Calcium 9.4 mg/dL (8.4-10.2); Carbon Dioxide 32 mmol/L (22-30); Chloride 94 mmol/L (98-107); Estimated CRCL calculation 43 ml/min; Estimated Glomerular Filt Rate 54; Glucose 147 mg/dL (65-110); Potassium 2.8 mmol/L (3.4-5.0); Sodium 135 mmol/L (137-145)
--- NOTE | 2023-03-15 07:27 | PC.NURSE ---
Critical potassium called. No answer on physician line. Physician call list unavailable at this time. Critical values reported to day shift nurse.
[2023-03-15] MEDS: PROPRANOLOL HCL 60 MG CAPSULE CR 120 MG PO (09:09)
[2023-03-15] MEDS: ACETAMINOPHEN 500 MG TABLET 1000 MG PO (09:09)
[2023-03-15] MEDS: AZITHROMYCIN 250 MG TABLET PO (09:09)
[2023-03-15] MEDS: hydroCHLOROthiazide 25 MG TABLET PO (09:10)
[2023-03-15] MEDS: PANTOPRAZOLE 40 MG TABLET PO (09:10)
[2023-03-15] MEDS: dilTIAZem HCL CD 240 MG CAP.24HR PO (09:10)
[2023-03-15] MEDS: LOSARTAN POTASSIUM 100 MG TABLET PO (09:10)
[2023-03-15] MEDS: guaiFENesin 12 HR 600 MG TABCR PO ×2 (09:11→20:01)
[2023-03-15] MEDS: LORATADINE 10 MG TABLET 20 MG PO (09:15)
[2023-03-15] MEDS: FUROSEMIDE INJ 40 MG/4 ML VIAL 20 MG IV PUSH ×2 (09:15→20:02)
[2023-03-15] MEDS: ENOXAPARIN 40 MG/0.4 ML SYRINGE SUB-Q (09:16)
[2023-03-15] MEDS: traMADol HCL (*CRX) 50 MG TABLET PO (09:17)
[2023-03-15] MEDS: POTASSIUM CHLORIDE 20 MEQ ER TABLET 40 MEQ PO (09:24)
[2023-03-15] MEDS: POTASSIUM CHLORIDE INJ 40 MEQ in SODIUM CHLORIDE 0.9% IV 500 ML 130 MEQ IVPB (09:34)
--- NOTE | 2023-03-15 12:36 | PM.IMPN ---
Progress Note: A&P Assessment and Plan (1) Acute exacerbation of COPD with asthma: Code(s): J44.1 - Chronic obstructive pulmonary disease with (acute) exacerbation; J45.901 - Unspecified asthma with (acute) exacerbation Status: Acute Assessment and Plan: Patient presented to the ED with active wheezing and shortness of breath. Chest x-ray did not show any signs of pneumonia. Patient started on Solu-Medrol 60 mg Q6H. Duo Nebs ordered p.o. Azithromycin Mucinex p.r.n. Chest physiotherapy q.i.d. (2) CHF (congestive heart failure): Code(s): I50.9 - Heart failure, unspecified Status: Acute Assessment and Plan: according to patient's chart she does have history of CHF and sees Cardiology here [facility]. Patient had increased swelling in her bilateral lower extremities as well as dyspnea and orthopnea. BNP 1080 No signs of edema on chest x-ray but cardiomegaly noted. Started on IV Lasix 20 mg b.i.d. Low-sodium diet Daily weights, strict I&Os, monitor BMP (3) Hypokalemia: Code(s): E87.6 - Hypokalemia Status: Acute Assessment and Plan: Likely due to Lasix Replenish as necessary (4) Hypertension: Qualifiers: Hypertension type: unspecified Qualified Code(s): I10 - Essential (primary) hypertension Code(s): I10 - Essential (primary) hypertension Status: Acute Assessment and Plan: Continue home medication Subjective Date/time seen: 03/15/23 12:36 Interval history: Patient is experiencing some shortness of breath and wheezing. There was wheezing on her respiratory exam. Lower extremity edema has resolved. Will continue to treat with steroids. Encourage patient to use her CPT and ambulate to prevent pneumonia to the unit. She denies any chest pain, nausea, vomiting, dysuria or diarrhea. Did have some low potassium this morning that was replaced. This is likely due to her Lasix use. Exam Narrative: GENERAL: Comfortable, no acute distress HENMT: moist mucous membranes EYES: EOM intact b/l NECK: no lymphadenopathy RESPIRATORY: clear to auscultation , harsh breath sounds CARDIO: RRR GI: soft, nontender, bowel sounds present SKIN: no rashes EXTREMITIES: no edema, redness or tenderness Objective Data Vital Signs Vital Signs: Vital Signs - 24 hr 03/14/23 14:09 03/14/23 14:19 03/14/23 15:55 Temperature 99.6 F Pulse Rate 72 71 73 Respiratory Rate 18 18 16 Blood Pressure 113/80 Pulse Oximetry 94 Oxygen Delivery 03/14/23 16:00 03/14/23 21:07 03/14/23 20:55 Temperature 97.5 F L Pulse Rate 74 74 71 Respiratory Rate 20 18 Blood Pressure 126/65 Pulse Oximetry 97 Oxygen Delivery 03/14/23 20:56 03/14/23 20:00 03/15/23 02:29 Temperature Pulse Rate 69 Respiratory Rate 18 Blood Pressure Pulse Oximetry 92 Oxygen Delivery Room Air Room Air 03/14/23 21:05 03/14/23 20:00 03/15/23 00:00 Temperature Pulse Rate 72 77 65 Respiratory Rate 18 Blood Pressure Pulse Oximetry Oxygen Delivery 03/15/23 04:40 03/15/23 06:35 03/15/23 07:48 Temperature 97.9 F Pulse Rate 64 79 70 Respiratory Rate 20 18 Blood Pressure 134/68 Pulse Oximetry 92 Oxygen Delivery 03/15/23 07:55 03/15/23 07:55 03/15/23 09:09 Temperature Pulse Rate 69 80 Respiratory Rate 18 Blood Pressure Pulse Oximetry 94 Oxygen Delivery Room Air 03/15/23 08:00 Temperature Pulse Rate Respiratory Rate Blood Pressure Pulse Oximetry Oxygen Delivery Room Air Intake/Output Intake/Output: Intake & Output 03/12/23 03/13/23 03/14/23 03/15/23 23:59 23:59 23:59 23:59 Intake Total 3140 1060 Output Total 900 4250 1400 [facility] -900 -1110 -340 Meds/Results Medications: Active Medications Generic Name Dose Route Start Last Admin Trade Name Freq PRN Reason Stop Dose Admin Acetaminophen 1,000 mg
[2023-03-15 16:09] LABS: Potassium 3.5 mmol/L (3.4-5.0)
--- NOTE | 2023-03-15 18:51 | PC.NURSE ---
On 03/15/23, the student, Callum Coloraod, provided care and completed [facility] documentation on this patient. I have reviewed the student's documentation and agree with the findings.
[2023-03-15] MEDS: OLANZapine 5 MG TABLET 15 MG PO (20:01)
[2023-03-15] MEDS: traZODone HCL 50 MG TABLET 150 MG PO (20:01)
[2023-03-16] VITALS (19 sets, daily range): BP systolic 123–146; BP diastolic 50–71; PULSE 65–85; RESP 16–20; TEMP 36.1–36.8; O2SAT 90–99
[2023-03-16] MEDS: IPRATROPIUM 0.5 MG/ALBUTEROL SULFATE 2.5 MG AMPUL.NEB 3 ML INHALATION ×4 (02:00→20:11)
[2023-03-16] MEDS: methylPREDNISolone SOD SUCC 125 MG VIAL 60 MG IV PUSH ×2 (05:10→17:25)
[2023-03-16 05:53] LABS: Hematocrit 39.6 % (37.0-47.0); Hemoglobin 12.8 g/dL (12.0-15.0); Mean Corpuscular HGB Conc 32.3 g/dl (32-36); Mean Corpuscular Hemoglobin 30.3 pg (26-34); Mean Corpuscular Volume 93.6 fl (80-100); Platelet Count Result 227 k/mm3 (150-375); Red Blood Count 4.23 M/mm3 (4.2-5.4); Red Cell Distribution Width 13.7 % (11.5-14.5); White Blood Count 16.4 K/mm3 (4.5-10.0)
[2023-03-16 06:05] LABS: Anion Gap 10 mmol/L (8-16); Blood Urea Nitrogen 31 mg/dL (7-17); Calcium 9.1 mg/dL (8.4-10.2); Carbon Dioxide 29 mmol/L (22-30); Chloride 97 mmol/L (98-107); Estimated CRCL calculation 39 ml/min; Estimated Glomerular Filt Rate 48; Glucose 137 mg/dL (65-110); Sodium 136 mmol/L (137-145)
[2023-03-16] MEDS: LORATADINE 10 MG TABLET 20 MG PO (08:49)
[2023-03-16] MEDS: FUROSEMIDE 20 MG TABLET PO (08:50)
[2023-03-16] MEDS: ACETAMINOPHEN 500 MG TABLET 1000 MG PO (08:50)
[2023-03-16] MEDS: guaiFENesin 12 HR 600 MG TABCR PO ×2 (08:50→20:44)
[2023-03-16] MEDS: POTASSIUM CHLORIDE 20 MEQ ER TABLET PO (08:50)
[2023-03-16] MEDS: LOSARTAN POTASSIUM 100 MG TABLET PO (08:50)
[2023-03-16] MEDS: PROPRANOLOL HCL 60 MG CAPSULE CR 120 MG PO (08:50)
[2023-03-16] MEDS: hydroCHLOROthiazide 25 MG TABLET PO (08:50)
[2023-03-16] MEDS: PANTOPRAZOLE 40 MG TABLET PO (08:50)
[2023-03-16] MEDS: AZITHROMYCIN 250 MG TABLET PO (08:50)
[2023-03-16] MEDS: traMADol HCL (*CRX) 50 MG TABLET PO (08:51)
[2023-03-16] MEDS: dilTIAZem HCL CD 240 MG CAP.24HR PO (08:51)
[2023-03-16] MEDS: ENOXAPARIN 40 MG/0.4 ML SYRINGE SUB-Q (08:55)
[2023-03-16] MEDS: POTASSIUM CHLORIDE INJ 40 MEQ in SODIUM CHLORIDE 0.9% IV 500 ML 130 MEQ IVPB (09:02)
--- NOTE | 2023-03-16 15:14 | PM.IMPN ---
Progress Note: A&P Assessment and Plan (1) Acute exacerbation of COPD with asthma: Code(s): J44.1 - Chronic obstructive pulmonary disease with (acute) exacerbation; J45.901 - Unspecified asthma with (acute) exacerbation Status: Acute Assessment and Plan: Patient presented to the ED with active wheezing and shortness of breath. Chest x-ray did not show any signs of pneumonia. Solu-Medrol 60 mg Q12H. Continue to deescalate. Deven Montgomery ordered p.o. Azithromycin Mucinex p.r.n. Chest physiotherapy q.i.d. (2) CHF (congestive heart failure): Code(s): I50.9 - Heart failure, unspecified Status: Acute Assessment and Plan: according to patient's chart she does have history of CHF and sees Cardiology here [facility]. Patient had increased swelling in her bilateral lower extremities as well as dyspnea and orthopnea. BNP 1080 No signs of edema on chest x-ray but cardiomegaly noted. Low-sodium diet Daily weights, strict I&Os, monitor BMP Lasix back to home dose (3) Hypokalemia: Code(s): E87.6 - Hypokalemia Status: Acute Assessment and Plan: Likely due to Lasix Replenish as necessary (4) Hypertension: Qualifiers: Hypertension type: unspecified Qualified Code(s): I10 - Essential (primary) hypertension Code(s): I10 - Essential (primary) hypertension Status: Acute Assessment and Plan: Continue home medication Subjective Date/time seen: 03/16/23 15:14 Interval history: Patient doing much better today. Patient's breath sounds are improved although there is still some mild wheezing present. Plan to start deescalating patient's steroid therapy. She denies shortness of breath. She is having some chest and back discomfort with coughing. She is tender upon palpation and is likely having musculoskeletal her tenderness due to ongoing coughing. Patient continues to improve plan is to hopefully discharge patient tomorrow. Exam Narrative: GENERAL: Comfortable, no acute distress HENMT: moist mucous membranes EYES: EOM intact b/l NECK: no lymphadenopathy RESPIRATORY: mild expiratory wheezing CARDIO: RRR GI: soft, nontender, bowel sounds present SKIN: no rashes EXTREMITIES: no edema, redness or tenderness Objective Data Vital Signs Vital Signs: Vital Signs - 24 hr 03/15/23 16:00 03/15/23 20:09 03/15/23 20:00 Temperature 99.0 F Pulse Rate 65 70 72 Respiratory Rate 18 18 Blood Pressure 103/48 L Pulse Oximetry 95 Oxygen Delivery 03/15/23 21:11 03/15/23 20:00 03/15/23 20:00 Temperature Pulse Rate 70 73 Respiratory Rate 18 Blood Pressure Pulse Oximetry Oxygen Delivery Room Air 03/16/23 00:00 03/16/23 02:01 03/16/23 02:23 Temperature Pulse Rate 65 67 69 Respiratory Rate 16 16 Blood Pressure Pulse Oximetry Oxygen Delivery 03/16/23 04:00 03/16/23 05:14 03/16/23 07:00 Temperature 98.3 F Pulse Rate 70 85 71 Respiratory Rate 16 18 Blood Pressure 146/66 H Pulse Oximetry 90 92 Oxygen Delivery Room Air 03/16/23 07:00 03/16/23 07:10 03/16/23 08:50 Temperature Pulse Rate 71 72 76 Respiratory Rate 18 18 Blood Pressure Pulse Oximetry Oxygen Delivery 03/16/23 08:00 03/16/23 13:00 03/16/23 13:10 Temperature Pulse Rate 76 75 Respiratory Rate 18 18 Blood Pressure Pulse Oximetry Oxygen Delivery Room Air 03/16/23 14:00 Temperature 97.9 F Pulse Rate 67 Respiratory Rate 18 Blood Pressure 123/50 L Pulse Oximetry 97 Oxygen Delivery Intake/Output Intake/Output: Intake & Output 03/13/23 03/14/23 03/15/23 03/16/23 23:59 23:59 23:59 23:59 Intake Total 3140 2470 1000 Output Total 900 4250 2400 400 Balance -900 -1110 70 600 Meds/Results Medications: Active Medications Generic Name Dose Route Start Last Admin Trade Name Freq PRN Reason Stop Dose Admin Acetaminophen
[2023-03-16 17:34] LABS: Potassium 3.6 mmol/L (3.4-5.0)
[2023-03-16] MEDS: traZODone HCL 50 MG TABLET 150 MG PO (20:43)
[2023-03-16] MEDS: OLANZapine 5 MG TABLET 15 MG PO (20:44)
[2023-03-17] VITALS (11 sets, daily range): BP systolic 97–143; BP diastolic 61–75; PULSE 62–78; RESP 16–18; TEMP 36.2–36.6; O2SAT 94–97
[2023-03-17] MEDS: methylPREDNISolone SOD SUCC 125 MG VIAL 60 MG IV PUSH ×2 (06:02→15:10)
[2023-03-17] MEDS: PROPRANOLOL HCL 60 MG CAPSULE CR 120 MG PO (08:54)
[2023-03-17] MEDS: ACETAMINOPHEN 500 MG TABLET 1000 MG PO (08:54)
[2023-03-17] MEDS: LOSARTAN POTASSIUM 100 MG TABLET PO (08:54)
[2023-03-17] MEDS: AZITHROMYCIN 250 MG TABLET PO (08:54)
[2023-03-17] MEDS: hydroCHLOROthiazide 25 MG TABLET PO (08:54)
[2023-03-17] MEDS: PANTOPRAZOLE 40 MG TABLET PO (08:54)
[2023-03-17] MEDS: FUROSEMIDE 20 MG TABLET PO (08:54)
[2023-03-17] MEDS: LORATADINE 10 MG TABLET 20 MG PO (08:55)
[2023-03-17] MEDS: ENOXAPARIN 40 MG/0.4 ML SYRINGE SUB-Q (08:55)
[2023-03-17] MEDS: guaiFENesin 12 HR 600 MG TABCR PO (08:55)
[2023-03-17] MEDS: dilTIAZem HCL CD 240 MG CAP.24HR PO (08:55)
--- NOTE | 2023-03-17 09:43 | P.CDI_ITS ---
CDI Query Clarification Request Documented history of CHF. CHF noted in the assessment and plan. Lasix listed as a home medication. Patient receiving Lasix. Elevated BNP on 03/13/23 lab work. Patient presented with dyspnea, orthopnea and edema. Please specify type and acuity of heart failure if known. * Acute * Chronic * Acute on Chronic * Unknown * Systolic * Diastolic * Combined Systolic and Diastolic * Unknown <Italia Colvin RN - Last Filed: 03/17/23 09:45> Clarified Diagnosis Clarified Diagnosis: acute on chronic diastolic failure <Dilia Oliva PA-C - Last Filed: 03/17/23 12:18>
[2023-03-17] MEDS: IPRATROPIUM 0.5 MG/ALBUTEROL SULFATE 2.5 MG AMPUL.NEB 3 ML INHALATION ×2 (09:45→14:48)
--- NOTE | 2023-03-17 14:39 | PM.DS ---
DS: Admitting Diagnosis Discharge Date 03/17/23 Admitting Diagnosis COPD exacerbation, CHF exacerbation DS: Discharge Diagnosis Discharge Diagnosis (1) Acute exacerbation of COPD with asthma: Code(s): J44.1 - Chronic obstructive pulmonary disease with (acute) exacerbation; J45.901 - Unspecified asthma with (acute) exacerbation Status: Acute (2) CHF (congestive heart failure): Code(s): I50.9 - Heart failure, unspecified Status: Acute (3) Hypokalemia: Code(s): E87.6 - Hypokalemia Status: Acute (4) Hypertension: Qualifiers: Hypertension type: unspecified Qualified Code(s): I10 - Essential (primary) hypertension Code(s): I10 - Essential (primary) hypertension Status: Acute DS: Summary Hospital Course Hospital Course: This is a 77-year-old female with a past medical history of COPD, hypertension, GERD, AFib post ablation, essential tremors, SVT, history of PE the present to the hospital on 03/13/23 with chief complaint of shortness of breath.? Patient states that she has had a productive cough and worsening shortness of breath for approximately 2 weeks. ? She also mentions that her ankles had increased swelling and she was short of breath with lying down flat. She had been on antibiotics as an outpatient because she thought she had pneumonia.? She has been producing a green-yellow sputum.? She has been taking her nebulizers at home.? She was taking Mucinex and states that this did help with her cough.? Patient was found to have a normal white blood cell count, and stated respiratory acidosis, elevated serum CO2 and a BNP of 1080.? Patient was started on IV steroids, azithromycin, IV Lasix b.i.d. and DuoNebs. Patient's wheezing improved during her hospital stay. She did have some hypokalemia which was likely due to Lasix use. Put patient back on her home dose. She did not have much lower extremity edema upon admission and couple dose of IV Lasix did help her. Potassium was corrected. Her IV steroids were slowly deescalated. Her white count did slowly elevate which is likely due to steroid use. will discharge patient home on p.o. steroids and completion of azithromycin. Her labs and vital signs are stable and she is medically clear for discharge at this time. Time Spent with Patient Time attestation: Total time spent providing and/or coordinating discharge services: Exam Narrative: GENERAL: Comfortable, no acute distress HENMT: moist mucous membranes EYES: EOM intact b/l NECK: no lymphadenopathy RESPIRATORY: clear to auscultation CARDIO: RRR GI: soft, nontender, bowel sounds present SKIN: no rashes EXTREMITIES: no edema, redness or tenderness DS: Data Data Completed and Pending Labs on day of discharge: Labs from last 24 hours 03/16/23 17:22 Potassium 3.6 Preliminary micro results at discharge 03/16/23 13:29 Sputum Culture - Preliminary Sputum Discharge Plan Discharge Attending physician on discharge: Xenia Kowalski Discharging Clinician: Dilia Oliva Patient Disposition: Home, Self-Care Activity: as tolerated Diet: heart healthy Discharge Instructions: Medications: Azithromycin 500 mg daily. Last dose tomorrow morning. Prednisone taper: 60 mg twice daily for 1 more day, 40 mg twice daily for 2 days, 40 mg daily for 2 days 20 mg daily for 2 days, then discontinue. Continue home nebulizer treatments every 4-6 hours as needed COPD exacerbation prevention: -Smoking cessation is pertinent -Avoid irritants such as dust or chemicals -Seek treatment when symptoms worsen -Exercising daily can help decrease breathing problems -Use pursed lip breathing. Pursed lip breathing can be used any time you feel short of breath again especially be helpful before restarting activity. Count to 2 while you take a deep breath per your nose. Slowly breathe through your mouth up with her lips slightly puckered. You should m
== END 2023-03-17 17:46 | disposition home or self-care (01) | DRG 190 ==
LOC: ANHED 14:26 → ANH3MED 17:09
PROVIDERS: Admitting Provider Internal Medicine; Emergency Provider Emergency Medicine; Visit Provider Internal Medicine Critical Care Medicine
DX: J44.1 Chronic obstructive pulmonary disease with (acute) exacerbation (principal); I50.33 Acute on chronic diastolic (congestive) heart failure; J45.901 Unspecified asthma with (acute) exacerbation; E87.6 Hypokalemia; F41.9 Anxiety disorder, unspecified; F32.A Depression, unspecified; G25.0 Essential tremor; I11.0 Hypertensive heart disease with heart failure; I48.91 Unspecified atrial fibrillation; K21.9 Gastro-esophageal reflux disease without esophagitis; Z86.711 Personal history of pulmonary embolism; Z20.822 Contact with and (suspected) exposure to COVID-19; Z90.49 Acquired absence of other specified parts of digestive tract; Z98.49 Cataract extraction status, unspecified eye; Z87.891 Personal history of nicotine dependence
CPT/HCPCS: 36415; 36600; 71046; 80048; 80053; 82805; 83735; 83880; 84132; 84484; 85025; 85027; 87070; 87205; 87637; 93005; 94640; 94667; 96374; 96375; 97161; 97165; 99285; A9270; G0378; J1650; J1940; J2930; J3480; J7040